=== PATIENT | female | born 1955 | race Caucasian/White ===

== ENCOUNTER 2021-08-17 16:09 | Outpatient (REF) | payer MEDICAID, SELFPAY ==
[2021-08-17 19:00] LABS: Abs Immature Grans 0.02 10^3/uL (0.0-0.06); Absolute Basophil Count 0.04 10^3/uL (0.0-0.2); Absolute Eosinophil Count 0.13 10^3/uL (0.0-0.7); Absolute Monocyte Count 0.58 10^3/uL (0.1-0.8); Absolute Neutrophil Count 5.43 10^3/uL (1.2-6.7); Basophils % 0.5; Eosinophils % 1.7; HCT 41.1 % (36.0-46.0); HGB 13.3 g/dL (11.2-15.7); Immature Grans % 0.3; Lymphocytes % 20.5; MCH 29.2 pg (27.0-33.0); MCHC 32.4 % (32.0-36.0); MCV 90.1 fL (80-95); Monocytes % 7.4; Neutrophils % 69.6; Nucleated RBC 0 %; Platelet Count 298 10^3/uL (130-400); RBC 4.56 10^6/uL (3.93-5.22); RDW 12.5 % (11.7-14.6); RDW-SD 40.8 fL
[2021-08-17 19:13] LABS: ESR 18 mm/hr (0-30)
[2021-08-17 19:58] LABS: ALT 24 U/L (14-59); AST 11 U/L (15-37); Albumin 3.8 g/dL (3.4-5.0); Alkaline Phosphatase 154 U/L (46-116); Anion Gap 7.9 mmol/L (3-11); BUN 15 mg/dL (7-18); Bilirubin, Total 0.4 mg/dL (0.2-1.0); CO2 29.1 mmol/L (21.0-32.0); CREATININE 0.7 mg/dL (0.55-1.02); Calcium 10.1 mg/dL (8.5-10.1); Calculated LDL 114 mg/dL (<100); Chloride 108 mmol/L (98-107); Cholesterol 181 mg/dL (<200); Glucose 100 mg/dL (74-106); HDL Cholesterol 45 mg/dL (40-60); Potassium 4.5 mmol/L (3.5-5.1); Sodium 145 mmol/L (136-145); Total Protein 7.6 g/dL (6.4-8.2); Triglyceride 113 mg/dL (<150)
[2021-08-17 20:12] LABS: Hemoglobin A1C 5.5 % (<5.7)
[2021-08-17 20:22] LABS: C-Reactive Protein 0.33 mg/dL (0.0-0.3)
== END 2021-08-17 16:10 | disposition home or self-care (01) ==
LOC: NCHCN 16:09
PROVIDERS: Referring Provider Nurse Practitioner Family; Visit Provider Nurse Practitioner Family
DX: Z13.1 Encounter for screening for diabetes mellitus (principal); Z13.220 Encounter for screening for lipoid disorders; R32 Unspecified urinary incontinence; R60.0 Localized edema; R03.0 Elevated blood-pressure reading, without diagnosis of hypertension; M62.81 Muscle weakness (generalized)
CPT/HCPCS: 80053; 80061; 85652; 83036; 85025; 86140

== ENCOUNTER 2021-09-24 14:47 | Outpatient (REF) | payer MEDICARE, MEDICAID, SELFPAY | END 2021-09-24 14:48 | disposition home or self-care (01) | LOC: NCHCN 14:47 | PROVIDERS: Visit Provider Nurse Practitioner Family | DX: R30.0 Dysuria (principal) | CPT/HCPCS: 87077; 87086; 87186 ==

== ENCOUNTER 2022-02-22 18:24 | Inpatient (IN) | payer MEDICARE, MEDICAID, SELFPAY ==
[2022-02-22 18:30] VITALS: BP 166/72; PULSE 81; RESP 18; TEMP 36.6; O2SAT 98
[2022-02-22 18:44] VITALS: RESP 18
--- NOTE | 2022-02-22 18:51 | ED.GENADUL_ITS ---
Discharge Plan Disposition Patient Disposition: [facility] INPATIENT Condition: Stable Discharge Details Clinical Impression: Bilateral leg weakness Primary Care Provider: Unknown,Unknown ED Provider: Carson Cox Home Meds and New Rx's Prescriptions: No Action aspirin 81 mg Capsule,Delayed Release(Dr/Ec) 81 mg PO DAILY 0RF omeprazole 20 mg Capsule,Delayed Release(Dr/Ec) 20 mg PO DAILY 0RF amlodipine-atorvastatin 10-40 mg Tablet 1 tab PO DAILY 0RF Medical Decision Making 66-year-old female presents from home where she has been living with caregivers. She is wheelchair-bound with flaccid lower extremities. While transferring off the toilet this evening she states she was dropped during the transfer to the floor. She did not injure herself. She states her caregivers are no longer able to sit successfully transfer her due to progressive weakness on their behalf. She does states she had some recent burning with urination but has otherwise been well. IV access established, screening labs obtained. Patient has a white blood cell count of 11, hematocrit 40, platelets 340. Chemistries unremarkable. Urinalysis reassuring. Case discussed with Dr. Shaw. Patient to be admitted as swing bed admission. HPI General Mode of arrival: wheelchair . Date/Time Provider Initiated Documentation: 02/22/22 18:42 . Limitations to Documentation: no limitations . Information obtained by: patient . History of Present Illness 66 year old F presents to the emergency department with the chief complaint of Fall at home, no injury, unable to return to longterm, denies pain, described as similar to prior episodes, Quality is described as other (Weakness), Patient started experiencing this month(s) and it has been intermittent. improves with No relieving factors improve symptom(s), No exacerbating factors reported . Patient notes other (Flaccid lower extremity, uses wheelchair and transfers with 2 person assist). Patient did receive the following treatments prior to arrival, none Related Data Home Medications Medication Instructions Recorded Confirmed amlodipine 10 mg-atorvastatin 40 1 tab PO DAILY 02/22/22 02/22/22 mg tablet aspirin 81 mg capsule,delayed 81 mg PO DAILY 02/22/22 02/22/22 release omeprazole 20 mg capsule,delayed 20 mg PO DAILY 02/22/22 02/22/22 release Allergies Allergy/AdvReac Type Severity Reaction Status Date / Time No Known Allergies Allergy Unverified 02/22/22 18:40 General Stated Complaint: GenMedical CHIO: 3 Review of Systems Narrative: Denies back pain. No numbness. No new weakness. States she has had some burning with urination and has an overactive bladder with frequent UTIs. 8 systems reviewed and otherwise negative PFSH All Active Problems (Updated 02/22/22 @ 20:54 by Alexis Shaw MD) Paraplegia (Acute) Bilateral leg weakness (Acute) Social History Smoking/Tobacco Use Status: Never Smoking risk assessment performed?: Yes Alcohol Intake: never Drug use: Never Exam Narrative Exam Narrative: GEN: awake, alert, oriented 3. Pleasant, well groomed, interactive. HEAD: Normocephalic, atraumatic ENT: Mucous membranes moist, oropharynx unremarkable, External ear exam unremarkable EYES: PERRL, EOMI NECK: Full ROM, no MADELINE, no menigismus CHEST/RESP: Nontender, clear to auscultation bilateral, no wheeze/rhonchi/rales CARDIOVASCULAR: RRR, no murmur, rub maryellen. 2+ Rad pulse bilateral ABDOMEN: Soft, nontender, no mass. +Bowel sounds EXT: Sensation intact throughout lower extremity, motor is absent, trace edema, no rash Neuro: Grossly normal neurologic exam, conversant, interactive. Psych: Speech fluent, thoughts congruent, affect normal Course Vital Signs Vital signs: Vital Signs Temperature 36.6 C 02/22/22 18:30 Pulse 81 02/22/22 18:30 Respiratory Rate 18 02/22/22 18:30 Blood Pressure 166/72 H 02/22/22 18:30 Pulse Oximetry 98 02/22/22 18:30 Temperature 36.6 C 02/22/22 18:30 Temperature Source Oral 02/22/22 18:30 Pulse 81 02/22/22 18:30 Respiratory Rate 18 02/22/22 18:44 Respiratory Effort Non-Labored 02/22/22 18:44 Respiratory Depth Normal 02/22/22 18:44 Respiratory Pattern Normal 02/22/22 18:44 Blood Pressure 166/72 H 02/22/22 18:30 Blood Pressure Position Supine 02/22/22 18:30 Pulse Oximetry 98 02/22/22 18:30 Oxygen Delivery Method Room Air 02/22/22 18:30 Oxygen Flow Rate 0 02/22/22 18:30 Pain Level 0 02/22/22 18:30
[2022-02-22 19:32] LABS: Abs Immature Grans 0.03 10^3/uL (0.0-0.06); Absolute Basophil Count 0.05 10^3/uL (0.0-0.2); Absolute Eosinophil Count 0.17 10^3/uL (0.0-0.7); Absolute Lymphocyte Count 1.92 10^3/uL (1.2-3.4); Basophils % 0.4; Eosinophils % 1.5; HCT 40.7 % (36.0-46.0); HGB 12.9 g/dL (11.2-15.7); Immature Grans % 0.3; Lymphocytes % 16.5; MCH 27.9 pg (27.0-33.0); MCHC 31.7 % (32.0-36.0); MCV 87.9 fL (80-95); MPV 10.4 fL (8.0-11.0); Monocytes % 4.7; Neutrophils % 76.6; Nucleated RBC 0 %; Platelet Count 340 10^3/uL (130-400); RBC 4.63 10^6/uL (3.93-5.22); RDW-SD 41.3 fL; WBC 11.61 10^3/uL (4.4-10.8)
[2022-02-22 19:34] LABS: Absolute Monocyte Count 0.55 10^3/uL (0.1-0.8); Absolute Neutrophil Count 8.89 10^3/uL (1.2-6.7)
[2022-02-22 19:35] LABS: Bilirubin Negative (Negative); Blood Trace-intact (Negative); Clarity Clear (Clear); Glucose Negative (Negative); Ketones Negative (Negative); Leukocyte Esterase Negative (Negative); Nitrite Negative (Negative); Specific Gravity 1.025 (1.005-1.025); Urobilinogen 0.2 EU/dL (Up TO 0.2)
[2022-02-22 19:40] LABS: ALT 22 U/L (14-59); AST 10 U/L (15-37); Alkaline Phosphatase 136 U/L (46-116); Anion Gap 8.5 mmol/L (3-11); BUN 15 mg/dL (7-18); Bilirubin, Total 0.4 mg/dL (0.2-1.0); CO2 26.5 mmol/L (21.0-32.0); CREATININE 0.6 mg/dL (0.55-1.02); Calcium 9.9 mg/dL (8.5-10.1); Chloride 107 mmol/L (98-107); Glucose 109 mg/dL (74-106); Magnesium 1.8 mg/dL (1.8-2.4); Potassium 3.8 mmol/L (3.5-5.1); Sodium 142 mmol/L (136-145); Total Protein 8.4 g/dL (6.4-8.2)
[2022-02-22 19:41] LABS: Bacteria Few HPF (Negative); C & S Indicated? No; Casts Negative LPF (Negative); Crystals Negative HPF (Negative); Epithelial Cells Few HPF (Negative); Mucus Negative (Negative); RBC 0-2 HPF (0-2)
--- NOTE | 2022-02-22 20:47 | W.PM.HP.N ---
Date of service: 02/22/22 Time of Service: 20:48 Assessment and Plan Assessment and plan (1) Paraplegia: Status: Acute Assessment and plan: Paraplegia. Unclear etiology, though I do not think the findings would be consistent with stroke. In any case she is obviously unable to manage at home with current lack of help desk support specialist. Will admit directly to swing bed 2 status and will need to work out placement. History of Present Illness History of Present Illness Chief Complaint: inability to manage at home Narrative: 66 female with h/o paraplegia of unknown etiology (she states it was due to stroke approx 2 years ago), has caregives at home and is two person assist. Caregivers have themselves been experiencing some issues recently and have reached a point where they are no longer able to manage transfers and in fact are in process of relocating out of the area from what I understand. P{atient transferred to ER due to inability to manage. Has no complaints here and says she is in her usual state of health. I was asked to evaluate for admission. Review of Systems Narrative: per HPI PFSH All Active Problems (Updated 02/22/22 @ 20:54 by Alexis Shaw MD) Paraplegia (Acute) Bilateral leg weakness (Acute) Social History Smoking/Tobacco Use Status: Never Smoking risk assessment performed?: Yes Alcohol Intake: never Drug use: Never Meds Allergies and Home Medications Allergies Allergy/AdvReac Type Severity Reaction Status Date / Time No Known Allergies Allergy Unverified 02/22/22 18:40 Home Medications Medication Instructions Recorded Confirmed Type amlodipine 10 mg-atorvastatin 40 1 tab PO DAILY 02/22/22 02/22/22 History mg tablet aspirin 81 mg capsule,delayed 81 mg PO DAILY 02/22/22 02/22/22 History release omeprazole 20 mg capsule,delayed 20 mg PO DAILY 02/22/22 02/22/22 History release Exam Narrative Exam Narrative: 166/72, 81, 36.6, 18, 98% RA. HEENT atraumatic; neck supple; lungs clear; heart RRR; abdomen soft and NT; extremities 1+ pedal edema; neuro Ox3, UE Motor 5/5; LE Motor 0/5, toes upgoing Results Labs Result diagrams: 02/22/22 19:10 02/22/22 19:10 Labs: Laboratory Results - last 24 hr 02/22/22 02/22/22 02/22/22 19:09 19:10 19:10 WBC 11.61 H RBC 4.63 Hgb 12.9 Hct 40.7 MCV 87.9 MCH 27.9 MCHC 31.7 L RDW 13.0 Plt Count 340 MPV 10.4 Immature Gran % 0.3 Neutrophils % 76.6 Lymphocytes % 16.5 Monocytes % 4.7 Eosinophils % 1.5 Basophils % 0.4 Nucleated RBC % 0 Absolute Neutrophils 8.89 H Absolute Lymphocytes 1.92 Absolute Monocytes 0.55 Absolute Eosinophils 0.17 Absolute Basophils 0.05 Sodium 142 Potassium 3.8 Chloride 107 Carbon Dioxide 26.5 Anion Gap 8.5 BUN 15 Creatinine 0.6 Estimated GFR/1.73 m2 >= 60.00 Glucose 109 H Calcium 9.9 Magnesium 1.8 Total Bilirubin 0.4 AST 10 L ALT 22 Alkaline Phosphatase 136 H Total Protein 8.4 H Albumin 4.0 Urine Color Yellow Urine Clarity Clear Urine pH 6.0 Ur Specific [place] 1.025 Urine Protein Negative Urine Ketones Negative Urine Blood Trace-intact H Urine Nitrite Negative Urine Bilirubin Negative Urine Urobilinogen 0.2 Ur Leukocyte Esterase Negative Urine RBC 0-2 Urine WBC 3-5 Ur Epithelial Cells Few Urine Crystals Negative Urine Bacteria Few Urine Casts Negative Urine Mucus Negative Ur Culture Indicated? No Urine Glucose Negative Last Vital Signs Temp 36.6 C 02/22/22 18:30 Pulse 81 02/22/22 18:30 Resp 18 02/22/22 18:44 BP 166/72 H 02/22/22 18:30 Pulse Ox 98 02/22/22 18:30
[2022-02-22 21:59] VITALS: BP 175/84; PULSE 83; RESP 20; TEMP 36.4; O2SAT 97
[2022-02-22 22:36] LABS: Source Nasal/Nares
[2022-02-23 07:14] VITALS: BP 133/77; PULSE 78; RESP 16; TEMP 37.1; O2SAT 98
[2022-02-23] MEDS: amLODIPine 10 MG TAB PO (08:03)
[2022-02-23] MEDS: Normal Saline Flush 10 ML SYR IVP (08:03)
[2022-02-23] MEDS: Aspirin E.C. 81 MG TABEC PO (08:04)
[2022-02-23] MEDS: Atorvastatin 40 MG TAB PO (08:04)
[2022-02-23] MEDS: Omeprazole 20 MG CAPCR PO (08:04)
[2022-02-23 09:42] LABS: COVID-19 PCR Negative (Negative)
[2022-02-23] MEDS: Nystatin POWDER 60 GM JAR TP ×2 (10:07→17:55)
--- NOTE | 2022-02-23 11:09 | INITIAL_ITS ---
- If Service Date Differs Date of service: 02/23/22 Time of Service: 11:09 Care Management Initial Assess REASON FOR HOSPITALIZATION:: BLE weakness PAST MEDICAL HISTORY/PAST SURGICAL HISTORY:: Bilateral lower extrremity weakness PREVIOUS FUNCTIONAL STATUS/SOCIAL/FAMILY SUPPORTS:: Alina lives with her daughter, her daughter's mani and his mother and their 3 children in [place], [place] She has developed increasing weakness of her lower extremities and requires the use of a wheelchair. Her family is no longer able to care for her and brought her to the hospital. She apparently was receiving home health services which ended in October. CURRENT FUNCTIONAL STATUS:: Alina was sitting up in bed when CM met with her. She was very pleasant and willing to engage in conversation. Alina explained that she has been receiving care at home from her daughter's mani's mother but she can no longer care for her. Alina is essentially wheelchair bound although she stated that when she left rehab last April she was able to ambulate. When asked what happened Alina stated I guess I kind of fell off the wagon. Its my own fault. She stated that she stopped PT and gradually regressed to her former level of functioning. At this time she verbalized not wanting to live in a facility but has no one able to care for her and she cannot manage on her own. CM spoke with her daughter Sue and discussed Retirement Medicaid with her and the likelihood this would be necessary. Sue agreed to come to the hospital to pick up truck driver the forms but has not done so yet. ADVANCE DIRECTIVES:: none on file Has patient been provided with info about the portal/API?: Yes Did the patient sign up for the portal?: No CODE STATUS:: Full Code INSURANCE COVERAGE / FINANCIAL ISSUES:: Medicare. Medicaid CURRENT HOME/COMMUNITY SERVICES/EQUIPMENT:: wheelchair PRIMARY CARE PHYSICIAN:: Yarelis Dimas POTENTIAL DISCHARGE NEEDS:: Alina was admitted as a SB-2 patient. custodial placement will likely be needed but with no payer source beyond traditional Medicaid, placement may be problematic.l PATIENT/FAMILY EDUCATION NEEDS:: Review of discharge instructions, limitations, follow up plan, activity, medications, Ask Me Three TRANSPORTATION:: to be determined by disposition PLAN:: Alina's discharge plan is unclear at this time. She will likley require terminal block assembler placement, however lacks a [facility] payer source. She does have Medicare and Medicaid but no [facility] Medicaid. BRENNAN discussed the need for LTM with Sue who will obtain the formss from BRENNAN when she comes to the hospital. CM will continue to support patient and assess for additional discharge concerns.
--- NOTE | 2022-02-23 12:58 | WOUNDCONS ---
- If Service Date Differs Date of service: 02/23/22 Time of Service: 12:58 Wound Initial Evaluation Narrative: 66 year old female with past history of CVA and bilateral leg weakness. Reported paralysis. Also history of incontinence, hypertension, hyperlipidemia, and bilateral leg edema. Lives at home with daughter and her [id number] who have been taking care of her. Unfortunately, they will be moving in March and will not be able to care for her any longer and have dropped pt off to the ER for placement in a [facility] inspector care facility. At home pt is a 2 person transfer to her recliner in which she spends most of the day. No history was given at the time patient was taken to the ER. Review of labs shows a slight elevation of WBC of 11.61, H&H of 12.9, 40.7 for good oxygenation, and an albumin of 4.0 for good healing potential. Review of medications include atorvastatin. Reason for consult explained to patient and consent obtained. Began with patient's feet that were dry and flaky with debris between her toes. Feet cleaned with moistened Debrisoft sponge. Most of the flakes removed. No open areas noted, no cracks between the toes found. Pt was repositioned onto left side. Area over the sacrum cleaned with surfactant cleanser. Pt has a 0.7x0.2x0.4 open over the sacrum. Periwound skin has no redness, no swelling and blanches well. Scant serous drainage from the wound. Coloplast Triad applied to site covered by duoderm. - Wound Lumbar/Sacral Wound Type: Partial Thickness Wound General Appearance: Asymptomatic Wound Bed Greatest Portion: Other (unable to visualize) Wound Surrounding Tissue Appearance: Normal/Healthy Wound Length: 0.7 in Wound Width: 0.2 in Wound Depth: 0.4 in Wound Drainage Amount: Minimal Wound Drainage Odor: None/Absent Wound Drainage Description: Serous Wound Topical Solution/Irrigant: Other (cleanser with surfactant) Wound Debridement Method: Gauze Wound Debridement Result: Healthy Tissue Revealed - Circulation, Sensation, Motion Edema Degree: 3+ Peripheral Pulse Strength: Weak Capillary Refill: Less than 3 seconds Sensation Description: Within Normal Limits Skin Temperature: Warm Skin Color: Normal - Pain Pain Level: 0 Pain Scale Used: Adult - Photo Photo: - Treatment/Dressing Change Topicals/Ointments: Other (Coloplast Triad) Cleanse With: Cleanser with Surfactant, Debrisoft Dressing Types: Hydrocollid (Duoderm) - Recomendation Recomendation:: Sacral wound: 1. Cleanse wound area with wound cleanser. 2. Pat dry. 3. Apply Coloplast Triad to wound bed and surrounding area to dime thickness. 4. Apply Skin prep to karoline wound skin. 5. Apply Duoderm over area. 6. Change every 3 days and prn if soiled or loose. Bilateral feet: 1. Wash feet daily. 2. Apply Eucerin cream to both feet daily. 3. If feet are dry and flaky, gently scrub feet with moisten Debrisoft sponge. Pat dry. And apply Eucerin Cream. Physcian/Nurse Practioner Notified: Yes Referrals: Physical Therapy Treatment Time - Time Total Time Spent with Patient: 60 - Patient Will be Seen Weekly Treatment: 1x/wk
[2022-02-23 14:55] VITALS: BP 144/83; PULSE 97; RESP 18; TEMP 36.5; O2SAT 99
--- NOTE | 2022-02-23 17:14 | CHAPLAIN ---
I had a short visit with Alina this afternoon. I explained my role and offered support. She was not interested in a further visit.
--- NOTE | 2022-02-23 17:47 | CM.SBPSYCH ---
- If Service Date Differs Date of service: 02/23/22 Time of Service: 17:47 SB Psychosocial/Act.Assessment - Hospital Admission Admission Date: 02/22/22 Admission From:: ED Diagnosis:: weakness - Swing Bed Admission Swing Bed Admit Date:: 02/22/22 Swing Bed Level of Care: Level 2/ICF - Social Supports PREVIOUS FUNCTIONAL STATUS/SOCIAL/FAMILY SUPPORTS:: Alina lives with her daughter, her daughter's fidimitrye and his mother and their 3 children in [place], [place]. She has developed increasing weakness of her lower extremities and requires the use of a wheelchair. Her family is no longer able to care for her and brought her to the hospital. She apparently was receiving home health services which ended in October. - Prior to Admission Living Arrangements/Environment Prior to Admission:: see above - Education Highest Grade Completed:: 12th Where did you attend School:: [employer] - Work History Employment Status:: retired - : No 's Spouse: No - Benefits Financial: Social Security, Medicare, Medicaid - Jehovah'S Witness Active Nondenominational Member:: No - Interests Hobbies:: crossword and word search puzzles Table Games:: enjoys playing games with grandchildren Sports:: enjoys watching all sports on TV Music:: all kinds including rock, country, easy listening TV/Movies:: westerns and game shows - Present Functional Status Physical Abilities:: wheelchair bound Cognitive:: little delayed, some memory issues Communication:: good verbal communication Sensory Systems: has reading glasses and top dentures Behavior:: appropriate - Medical History PAST MEDICAL HISTORY/PAST SURGICAL HISTORY:: Bilateral lower extrremity weakness General Health:: good - Admission Data Reason for Swing Bed Admission:: Unable to care for self at home. Caregivers unable to continue to provide care Discharge Plan:: SNF for rehab then home vs nursing home care Assessment: Alina is a 66 year old woman who has become progressively weaker over the past year. She was in a SNF for 4 months and was discharged on 05/27/21. Per patient, she did not continue her therapy as prescribed and gradually lost the ability to ambulate independently. She is in SB2 awaiting SNF placement and/or LTM. Doffer: Nicole Garcia Date Assessment was completed:: 02/23/22
--- NOTE | 2022-02-23 17:49 | CMSCP_ITS ---
- If Service Date Differs Date of service: 02/23/22 Time of Service: 17:49 Swingbed Plan of Care Plan of care: SWING BED PROGRAM ACTIVITIES/DISCHARGE PLAN OF CARE ACTIVITIES PLAN Date:02/23/22 Identified Need:Individualized activities plan Intervention/Plan:Alina enjoys crossword and wordsearch puzzles. She also likes to color in adult coloring books. She has been provided with all 3. Alina would benefit from pet or music therapy if they become available. She listens to music and watches TV as well. Initials [facility] DISCHARGE PLAN Date:02/23/22 Identified Need:safe discharge plan Intervention/Plan:seeking SNF placement for short or penitentiary care [facility]
[2022-02-23] MEDS: Cyclobenzaprine 10 MG TAB PO (22:37)
[2022-02-24 01:09] VITALS: BP 142/74; PULSE 77; RESP 17; TEMP 36.2; O2SAT 95
[2022-02-24 07:30] VITALS: BP 122/77; PULSE 84; RESP 19; TEMP 36.2; O2SAT 98
[2022-02-24] MEDS: amLODIPine 10 MG TAB PO (09:19)
[2022-02-24] MEDS: Aspirin E.C. 81 MG TABEC PO (09:20)
[2022-02-24] MEDS: Nystatin POWDER 60 GM JAR TP ×2 (09:20→19:47)
[2022-02-24] MEDS: Omeprazole 20 MG CAPCR PO (09:20)
[2022-02-24] MEDS: Atorvastatin 40 MG TAB PO (09:20)
[2022-02-24] MEDS: Normal Saline Flush 10 ML SYR IVP (09:21)
--- NOTE | 2022-02-24 09:44 | PT.INIE ---
Date of service: 02/24/22 Time of Service: 09:44 PT Notes Visit Reasons: Paraplegia Physical Therapy Inpatient Initial Evaluation Date: 02/24/2022 Referring Doctor: Jason Fox MD PT Orders: PT CONSULT: Eval/treat Precautions: Fall. Standard. Activity as tolerated. Wheelchair-bound. Patient Profile/Admitting Diagnosis: Alina is a 66-year-old female who presented to the ED on 01/25/2022 due to a fall at home during transfer with caregivers at home. Patient is diagnosed with paraplegia. PMHX: All Active Problems?(Updated 02/22/22 @ 20:54 by Alexis Shaw MD) Paraplegia (Acute) Bilateral leg weakness (Acute) Social History/Home Situation: Patient states that she stays with her daughter's boyfriend's mother' house. Patient states that the daughter's boyfriend and another male house member with a heart issue have been helping her with transfers. Equipment Owned/DME: Wheelchair Subjective: Agreeable to PT consult. Patient states that since her discharge from a SNF last spring, she has spiralled down and has been wheelchair-bound for almost a year now. She is adamant that she cannot return to this house anymore and is agreeable to going to a [place] [facility] facility to perhaps stay long-term. Objective: General Observation: Supine in bed. IV access in R UE. Mental Status: Alert and oriented as to person, place, time, and purpose. Able to pay attention, focus, and respond appropriately. Pain: Reports generalized pain with B UE and B LE movement/weight bearing ROM: Right Upper Extremity: Shoulder Flexion WFL. Shoulder abduction WFL. Elbow flexion WFL. Wrist flexion WFL. Functional opening and closing of hand WFL. Left Upper Extremity: Shoulder Flexion WFL. Shoulder abduction WFL. Elbow flexion WFL. Wrist flexion WFL. Functional opening and closing of hand WFL. Right Lower Extremity: Unable to move any part of extremity Left Lower Extremity: Unable to move any part of extremity Strength: Right Upper Extremity: Shoulder flexors 4/5. Shoulder abductors 4/5. Elbow flexors 4/5. Elbow extensors 4/5. Summer Sessions Director strong. Left Upper Extremity: Shoulder flexors 4/5. Shoulder abductors 4/5. Elbow flexors 4/5. Elbow extensors 4/5. Summer Sessions Director strong. Right Lower Extremity: Hip flexors 0/5. Hip abductors 0/5. Knee flexors 0/5. Knee extensors 0/5. Ankle dorsiflexors 0/5. Ankle plantarflexors 0/5. Left Lower Extremity: Hip flexors 0/5. Hip abductors 0/5. Knee flexors 0/5. Knee extensors 0/5. Ankle dorsiflexors 0/5. Ankle plantarflexors 0/5. Bed Mobility/Transfers: Rolling with moderate assist Supine to sit with moderate assist using bilateral rails, leg bottom cager, and gait belt tied to foot of the bed as something to grab onto Sit to stand tolerated about 5 seconds using STEDY lift with report of generalized body pain Stand to sit minimal assist of 3 using STEDY lift Bed to reclining chair minimal assist of 3 using STEDY lift, maximal cues provided correct technique Reclining chair to bed minimal assist of 3 using STEDY lift, maximal cues provided correct technique Gait: Unable Balance: Static Sitting: Fair Dynamic Sitting: Fair Static Standing: Unable Dynamic Standing: Unable Special Tests: Mobility Limitations Standardized Measure [facility] AM-PAC 6 clicks Basic Mobility Inpatient Short Form: Raw Score: 8 CMS Score: 87% deficit Informed Consent/Education: Patient was instructed in purpose of PT consult and plan of care. Agreeable to proceed with established PT POC to achieve personal goals. Assessment: Alina demonstrates inability to volitionally move bilateral lower extremities. She is very much deconditioned and reports upper extremity pain with attempts at standing up and with transfers. Initially used slide board from bed to the wheelchair but weakness in the trunk and UE muscles were not adequate needing assist of 3 for safety. Attempted to perform transfer with STEDY lift with assist of 3 but patient reported increased pain in back and upper extremities that only allowed up to 5 seconds of momentary static standing. Patient will be the safest using mechanical lift at this time to ensure safety of the patient and caregivers. Patient presents with clinical signs and symptoms consistent with current/admitting diagnoses that have resulted to mobility limitations, gait instability, generalized weakness, and overall ADL decline as demonstrated by the following impairment level findings: 1. Decreased strength to trunk and BUE/LE major muscle groups 2. Impaired sitting/standing balance 3. Impaired activity tolerance 4. HIgh anxiety and fearfulness of falling Impairments are contributing to the following functional limitations: 1. Decline in bed mobility skills 2. Decline in transfer skills 3. Increased risk for skin breakdown 4. Increased risk for further functional mobility decline Patient is assessed as a [address]0628 moderate complexity based on the following: History: 66-year-old femalewith past medical history as indicated above Examination: Demonstrable impairment in strength, balance, and mobility level with underlying impairments and functional limitations as exhibited above as well as deficit score of 87% utilizing the [facility] Mobility Inpatient Short Form Presentation: Unstable Decision Makin moderate complexity Goals: Goals X1 week 1. Supine-Sit contact-guard assist 2. Sit-Supine minimal assist to BLE 3. Bed-Chair contact-guard assist with slide board 4. Chair-Bed contact-guard assist with slide board 5. Good sitting balance and tolerance to increase safety of slide board transfers Plan of Care/Treatment Plan: 1-2x/day, 7 days/week x 1 week. Plan of care has been reviewed with the INVESTOR RELATIONS DIRECTOR providing the service under Physical Therapy direction. Initiate Physical Therapy intervention for pain management as needed, strengthening, bed mobility, and transfers. DISCHARGE RECOMMENDATIONS: [] Home with no services [] [] Home with services [specify] [] Home with outpatient PT [] [X] SNF for continued rehabilitation. Patient will benefit from [facility] for continued skilled physical therapy services in order to progress mobility level, strength, and balance to reduce fall risk. [] Snf Care [] [] SNF versus LTC based on ability to participate and progress [] TREATMENT CODE/TIME: 9716 2 x 20 minutes, 9753 0 x 12 minutes beginning at 9:44 AM and 10:38 AM. Thank you for the opportunity to participate in the care of this patient. Ana Trejo PT, DPT, CLT [facility] [place], [place]
--- NOTE | 2022-02-24 12:35 | PTTR_ITS ---
Date of service: 02/24/22 Time of Service: 12:35 PT Notes Visit Reasons: Paraplegia Physical Therapy Inpatient Treatment Note Date: 02/24/2022 Precautions: Fall. Standard. Activity as tolerated. Wheelchair-bound. Subjective: Agreeable to initiating trunk and B UE strengthening exercises while seated on chair. Daughter Sue present during session. Objective: General Observation: Supine in bed. IV access in R UE.? Mental Status: Alert and oriented as to person, place, time, and purpose. Able to pay attention, focus, and respond appropriately. Pain: Reports generalized pain with B UE and B LE movement/weight bearing THERA EX: Abdominal muscle activation while leaning forward from a reclined position and using B UE to pull from end of arm rests x 10, chair push ups with ability to straighten B elbows but without lifting pelvis off chair x 10, gluteal sets x 10. Patient needed to be scooted back onto chair for optimal positioning with assist from CRAFT SUPERINTENDENT Yue. Gait: Unable. However able to self mobilize in the hallway with wheelchair for 250 feet before report of fatigue. Balance: Static Sitting: Fair Dynamic Sitting: Fair Static Standing: Unable Dynamic Standing: Unable Assessment: Alina demonstrates inability to volitionally move bilateral lower extremities. She is very much deconditioned and reports upper extremity pain with attempts at standing up and with transfers.? Initially used slide board from bed to the wheelchair but weakness in the trunk and UE muscles were not adequate needing assist of 3? for safety.? Attempted to perform transfer with STEDY lift with assist of 3 but patient reported increased pain in back and upper extremities that only allowed up to 5 seconds of momentary static standing.? Patient will be the safest using mechanical lift at this time to ensure safety of the patient and caregivers.? DISCHARGE RECOMMENDATIONS: [] ? Home with no services [] [] ? Home with services [specify] [] ? Home with outpatient PT [] [X] ? SNF for continued rehabilitation.? Patient will benefit from long term facility placement for continued skilled physical therapy services in order to progress mobility level, strength, and balance to reduce fall risk. [] ? Nursing Home Care [] [] ? SNF versus LTC based on ability to participate and progress [] TREATMENT CODE/TIME: 15608 x 25 minutes beginning at 12:35 PM and 15:10 PM.
[2022-02-24 14:34] VITALS: BP 110/71; PULSE 83; RESP 20; TEMP 36.7; O2SAT 98
[2022-02-24] MEDS: Acetaminophen 325 MG TAB 650 MG PO (18:18)
[2022-02-24] MEDS: Baclofen 10 MG TAB PO (19:47)
[2022-02-25 00:01] VITALS: BP 119/72; PULSE 76; RESP 17; TEMP 36.3; O2SAT 93
[2022-02-25 07:32] VITALS: BP 131/77; PULSE 100; RESP 18; TEMP 37; O2SAT 96
[2022-02-25] MEDS: Aspirin E.C. 81 MG TABEC PO (09:39)
[2022-02-25] MEDS: amLODIPine 10 MG TAB PO (09:40)
[2022-02-25] MEDS: Atorvastatin 40 MG TAB PO (09:41)
[2022-02-25] MEDS: Baclofen 10 MG TAB PO ×3 (09:41→20:21)
[2022-02-25] MEDS: Omeprazole 20 MG CAPCR PO (09:42)
[2022-02-25] MEDS: Nystatin POWDER 60 GM JAR TP ×2 (09:42→20:21)
[2022-02-25] MEDS: Normal Saline Flush 10 ML SYR IVP (13:56)
[2022-02-25 14:18] VITALS: BP 116/71; PULSE 88; RESP 18; TEMP 37.2; O2SAT 96
--- NOTE | 2022-02-25 15:34 | PT.INTREAT ---
PT Notes Visit Reasons: Paraplegia Inpatient Physical Therapy Treatment Note [facility] Date: 02/25/22 SUBJECTIVE:Ailna offers no complaints to me today. She is willing to work with PT. OBJECTIVE: [] BED MOBILITY/TRANSFERS pt already in recliner. STEDI lift used with nsg. THEREX: performed UE and trunk strengthening ex. See flowsheet for details. Incorporated some light balance ex while seated for trunk control. ASSESSMENT: tolerated session well. Cues to slow mvmt patterns down and try to gain more control. PLAN:continue to work on abdominal and UE strength progressing functional mobility per PT POC. TREATMENT CODE/TIME: 15 min in am and 15 min in pm [id number]
[2022-02-25 23:16] VITALS: BP 129/80; PULSE 102; RESP 18; TEMP 37.4; O2SAT 95
[2022-02-26 07:32] VITALS: BP 130/81; PULSE 79; RESP 18; TEMP 37; O2SAT 100
[2022-02-26] MEDS: Baclofen 10 MG TAB PO ×3 (09:06→19:24)
[2022-02-26] MEDS: amLODIPine 10 MG TAB PO (09:07)
[2022-02-26] MEDS: Omeprazole 20 MG CAPCR PO (09:07)
[2022-02-26] MEDS: Aspirin E.C. 81 MG TABEC PO (09:08)
[2022-02-26] MEDS: Atorvastatin 40 MG TAB PO (09:08)
[2022-02-26] MEDS: Acetaminophen 325 MG TAB 650 MG PO (09:50)
--- NOTE | 2022-02-26 10:10 | PT.INTREAT ---
Date of service: 02/26/22 Time of Service: 10:10 PT Notes Visit Reasons: Paraplegia Physical Therapy Inpatient Treatment Note Date: 02/26/2022 Precautions: Fall. Standard. Activity as tolerated. Wheelchair-bound. Subjective: Agreeable to continuing with exercises today. Objective: General Observation: Supine in bed. IV access in R UE.? Mental Status: Alert and oriented as to person, place, time, and purpose. Able to pay attention, focus, and respond appropriately. Pain: Reports generalized pain with B UE and B LE movement/weight bearing THERA EX:? Shoulder abd x 10 using 3lb DB while on STEDY lift to facilitate concomittant trunk muscle . Elbow flexion and extension using 3 lb DB while on STEDY lift to facilitate concomittant trunk muscle. Abdominal muscle activation while on STEDY lift to leaning forward from a reclined trunk position with B UE hlding onto front bar x 10. THERA ACT: Facilitated sit<>stand/squat<>stand activities while on STEDY lift x 5 with patient able to sustain static standing for 5 seconds each time. Also provided positioning assist in bed with nursing staff during morning care. Transferred patient from edge of bed onto chair using STEDY lift. Bed Mobility/Transfers: Rolling with moderate assist Supine to sit with moderate assist using bilateral rails, leg systematic theology professor, and gait belt tied to foot of the bed as something to grab onto Sit to stand tolerated about 5 seconds using STEDY? lift with report of generalized body pain Stand to sit SBA using STEDY lift Bed to reclining chair minimal assist using STEDY lift, maximal cues provided correct technique Gait: Unable. However able to self mobilize in the hallway with wheelchair for 250 feet before report of fatigue. Balance: Static Sitting: Fair Dynamic Sitting: Fair Static Standing: Poor Dynamic Standing: Unable Assessment: Balance and tolerance for static standing are gradually improving with extensive cues provided for B UE and trunk positioning. Alina demonstrates inability to volitionally move bilateral lower extremities at this time. DISCHARGE RECOMMENDATIONS: [] ? Home with no services [] [] ? Home with services [specify] [] ? Home with outpatient PT [] [X] ? SNF for continued rehabilitation.? Patient will benefit from retirement facility placement for continued skilled physical therapy services in order to progress mobility level, strength, and balance to reduce fall risk. [] ? Half-Way Care [] [] ? SNF versus LTC based on ability to participate and progress [] TREATMENT CODE/TIME: 99426 x 15 minutes, 58411 x 10 minutes beginning at 10:10 AM.
[2022-02-26] MEDS: Nystatin POWDER 60 GM JAR TP ×2 (11:25→19:24)
[2022-02-26] MEDS: Polyethylene Glycol 3350 17 GM PACKET PO (13:19)
[2022-02-26 15:17] VITALS: BP 165/76; PULSE 89; RESP 20; TEMP 36.8; O2SAT 99
--- NOTE | 2022-02-26 15:24 | PT.INTREAT ---
PT Notes Visit Reasons: Paraplegia Inpatient Physical Therapy Treatment Note [facility] Date: 02/26/22 SUBJECTIVE: Alina states that she is currently applying to go to a custodial. She offers no complaints to me today. OBJECTIVE: [] THEREX: global UE strengthening, as well as core stabilization for trunk control, see flowsheet for details. ASSESSMENT: tolerated session well. No complaints offered during ex. Unable to lift herself in chair. PLAN: continue to progress following PT POC TREATMENT CODE/TIME: 18 min 10378x1
[2022-02-26] MEDS: Bisacodyl 10 MG SUPP PR (16:38)
[2022-02-26] MEDS: Docusate Sodium 100 MG CAP PO (19:24)
[2022-02-26 23:10] VITALS: BP 133/69; PULSE 117; RESP 20; TEMP 37.8; O2SAT 97
[2022-02-27] MEDS: Acetaminophen 325 MG TAB 650 MG PO (02:15)
[2022-02-27 07:57] VITALS: BP 154/84; PULSE 80; RESP 24; TEMP 37.1; O2SAT 95
[2022-02-27] MEDS: Baclofen 10 MG TAB PO ×3 (08:16→19:48)
[2022-02-27] MEDS: Aspirin E.C. 81 MG TABEC PO (08:16)
[2022-02-27] MEDS: amLODIPine 10 MG TAB PO (08:17)
[2022-02-27] MEDS: Omeprazole 20 MG CAPCR PO (08:17)
[2022-02-27] MEDS: Atorvastatin 40 MG TAB PO (08:17)
[2022-02-27] MEDS: Nystatin POWDER 60 GM JAR TP ×2 (08:17→19:48)
[2022-02-27] MEDS: Docusate Sodium 100 MG CAP PO ×2 (08:17→19:48)
--- NOTE | 2022-02-27 11:35 | PT.INTREAT ---
PT Notes Visit Reasons: Paraplegia Inpatient Physical Therapy Treatment Note [facility] OBJECTIVE: Bed-Chair: Via steady lift x 3 assist to stand. We will try the Maureen lift with pt next session to see if that is easier with transfers. GAIT THEREX: Pt completed UE strendthening ther ex while seated as per flow sheet with the red tband and the 3# wts. Pt completed core strengthening ther ex as per flow sheet while seated. ASSESSMENT: PT tolerated today's session fairly well. Pt did require vc's to slow down with her movement. Pt is not able to assist much with sit to stands with the steady. PLAN: Cont as per PT POC as per jennifer. TREATMENT CODE/TIME: 09-06:35 (35) GEOVANI SANCHEZ
[2022-02-27 15:54] VITALS: BP 133/85; PULSE 107; RESP 18; TEMP 36.7; O2SAT 97
[2022-02-27] MEDS: Senna TAB 1 TAB PO (21:26)
[2022-02-27 23:41] VITALS: BP 140/73; PULSE 104; RESP 20; TEMP 36.2; O2SAT 96
[2022-02-28 08:10] VITALS: BP 148/76; PULSE 106; RESP 16; TEMP 37.2; O2SAT 97
[2022-02-28] MEDS: Aspirin E.C. 81 MG TABEC PO (08:56)
[2022-02-28] MEDS: Baclofen 10 MG TAB PO ×3 (08:56→19:19)
[2022-02-28] MEDS: Omeprazole 20 MG CAPCR PO (08:56)
[2022-02-28] MEDS: amLODIPine 10 MG TAB PO (08:57)
[2022-02-28] MEDS: Docusate Sodium 100 MG CAP PO ×2 (08:57→19:18)
[2022-02-28] MEDS: Atorvastatin 40 MG TAB PO (08:57)
[2022-02-28] MEDS: Nystatin POWDER 60 GM JAR TP ×2 (08:58→19:19)
--- NOTE | 2022-02-28 11:42 | PT.INTREAT ---
PT Notes Visit Reasons: Paraplegia Inpatient Physical Therapy Treatment Note [facility] Date: 02/28/22 PRECAUTIONS:[] SUBJECTIVE: Pt reports that she is fatigued today. OBJECTIVE: Supine-sit: Mod x 2 Sit-stand: Steady lift x 3 Stand-sit: Steady lift x 2 THEREX: Pt completed UE strengthening ther ex as per flow sheet utilizing the red tband and the 3# wts as per flow sheet. Pt also completed seated mini crunches for core. ASSESSMENT: Pt was able to transfer better today and required less assist then yesterday but seemed more tired with the exercises today. PLAN: Cont as per PT POC as per jennifer. TREATMENT CODE/TIME: 10:15-10:20 (5) 10:30-10:50 (20) GEOVANI SANCHEZ
[2022-02-28 16:09] VITALS: BP 151/83; PULSE 95; RESP 17; TEMP 37; O2SAT 98
--- NOTE | 2022-02-28 18:16 | W.PM.PROGNOT ---
Date of Service Date of service: 02/28/22 Time of Service: 18:16 Assessment and Plan Assessment and plan (1) Paraplegia: Start date: 02/28/22 Start time: 18:18 Status: Acute Assessment and plan: Patient is able to transfer with PT and ambulate. She is not parapelgic. Believed to be self diagnosis. Continue to work with PT. (2) Bilateral leg weakness: Start date: 02/28/22 Start time: 18:19 Status: Acute Assessment and plan: Patient was ambulatory, went home and gave up, now working with PT to gain strength. continue to work increasing strength discussed with Dr. De La Rosa. Subjective Subjective Patient reports: no new complaints Interval history since last seen: Sitting up in bed eating. States no complaints. When asked to move feet or legs states she cant, though she was able to transfer with PT. No pain continue to work with PT. Exam Const General: cooperative, comfortable and no acute distress Nutritional Appearance: obese Orientation: alert, awake and oriented x3 Eyes Eyelids: eyelids normal Pupils: PERRL EOM: EOM intact bilaterally Neck Neck: normal visual inspection and no JVD Lymphatic: no lymphadenopathy noted Resp Effort & Inspection: normal respiratory effort Auscultation: clear to auscultation bilaterally Cardio Jugular venous pressure: no JVD Rhythm: regular rhythm Heart Sounds: S1 normal GI Auscultation: normal bowel sounds Skin General skin exam: no rashes or lesions noted Neuro General: patient alert, patient awake and patient oriented x3 Cognition: normal cognition Speech: speech normal Extrem General: normal to inspection and no clubbing, cyanosis or edema Objective Last Vital Signs Temp 37 C 02/28/22 16:09 Pulse 95 H 02/28/22 16:09 Resp 17 02/28/22 16:09 BP 151/83 H 02/28/22 16:09 Pulse Ox 98 02/28/22 16:09
[2022-02-28] MEDS: Senna TAB 1 TAB PO (21:24)
[2022-02-28 22:54] VITALS: BP 119/74; PULSE 88; RESP 19; TEMP 36.7; O2SAT 94
[2022-03-01] MEDS: Acetaminophen 325 MG TAB 650 MG PO (00:05)
[2022-03-01] MEDS: Melatonin 3 MG TAB 6 MG PO (00:06)
--- NOTE | 2022-03-01 01:15 | NUR.NOTE ---
this display card writer assisted with placing a female catheter on patient. suction placed at 45-50mmg as per weaving machine operator instructions. patient tolerated procedure well and was agreeable to the trial.
[2022-03-01 05:06] VITALS: BP 125/73; PULSE 84; RESP 19; TEMP 36.2; O2SAT 95
[2022-03-01 07:35] VITALS: BP 126/68; PULSE 70; RESP 18; TEMP 36.4; O2SAT 97
[2022-03-01] MEDS: Atorvastatin 40 MG TAB PO (08:13)
[2022-03-01] MEDS: Aspirin E.C. 81 MG TABEC PO (08:13)
[2022-03-01] MEDS: Nystatin POWDER 60 GM JAR TP ×2 (08:13→21:27)
[2022-03-01] MEDS: Baclofen 10 MG TAB PO ×3 (08:13→21:27)
[2022-03-01] MEDS: amLODIPine 10 MG TAB PO (08:13)
[2022-03-01] MEDS: Omeprazole 20 MG CAPCR PO (08:13)
[2022-03-01] MEDS: Docusate Sodium 100 MG CAP PO ×2 (08:13→21:27)
--- NOTE | 2022-03-01 10:57 | PTTR_ITS ---
Date of service: 03/01/22 Time of Service: 10:57 PT Notes Visit Reasons: Paraplegia Physical Therapy Inpatient Treatment Note Date: 03/01/2022 Precautions: Fall. Standard. Activity as tolerated. Wheelchair-bound. Subjective: Agreeable to continuing with exercises today. Objective: General Observation: Seated on chair. Mental Status: Alert and oriented as to person, place, time, and purpose. Able to pay attention, focus, and respond appropriately. Pain: Denies THERA EX:? Shoulder abd x 10 using 3lb DB, shoulder and elbow flexion and extension using 3 lb DB, Abdominal muscle activation with B UE pulling from end of arm rests and with trunk coming from a reclined position on bedside recliner x 10.? Gait: Unable. Balance: Static Sitting: Fair Dynamic Sitting: Fair Static Standing: Poor Dynamic Standing: Unable Assessment: Decrease to 1x/day beginning today. Balance and tolerance for static standing are gradually improving with extensive cues provided for B UE and trunk positioning.? Alina demonstrates inability to volitionally move bilateral lower extremities at this time. DISCHARGE RECOMMENDATIONS: [] ? Home with no services [] [] ? Home with services [specify] [] ? Home with outpatient PT [] [X] ? SNF for continued rehabilitation.? Patient will benefit from [facility] for continued skilled physical therapy services in order to progress mobility level, strength, and balance to reduce fall risk. [] ? [facility] [] [] ? SNF versus LTC based on ability to participate and progress [] TREATMENT CODE/TIME: 66338 x 18 beginning at 10:57 AM.
[2022-03-01 15:30] VITALS: BP 121/74; PULSE 91; RESP 19; TEMP 36.7; O2SAT 98
--- NOTE | 2022-03-01 18:06 | NUR.NOTE ---
Nursing Note: This MANUFACTURING PRODUCTION TECHNICIAN went into the room to assist ESPERANZA Benoit to get pt back to bed from chair around 1750. Kaycee had a steady lift in place. We then attempted to help patient stand and patient only moved forward and was not able to assist herself to stand at all. We immediately called for more assistance but by the time CRUZ Blake entered the room she was already to far forward in the chair. At that point it was determined the safest option would be to continue assisting patient to the floor and use the john lift at that point. Patient was assisted off the edge of the chair to the floor. This was able to be accomplished very elegantly and gingerly as she was in a controlled slide to the floor with the bed pad. John pad then placed and pt was moved back to bed with out further complications. No injuries were sustained in this event. TISH Erazo notified.
[2022-03-01 21:23] VITALS: BP 120/73; PULSE 111; RESP 18; TEMP 36.7; O2SAT 96
[2022-03-01] MEDS: Senna TAB 1 TAB PO (21:27)
[2022-03-01 23:34] VITALS: BP 125/65; PULSE 70; RESP 18; TEMP 36.6; O2SAT 97
[2022-03-02 06:46] VITALS: BP 126/76; PULSE 80; RESP 18; TEMP 36.6; O2SAT 96
[2022-03-02] MEDS: amLODIPine 10 MG TAB PO (08:11)
[2022-03-02] MEDS: Baclofen 10 MG TAB PO ×3 (08:11→20:59)
[2022-03-02] MEDS: Docusate Sodium 100 MG CAP PO ×2 (08:11→20:59)
[2022-03-02] MEDS: Nystatin POWDER 60 GM JAR TP ×2 (08:11→20:59)
[2022-03-02] MEDS: Omeprazole 20 MG CAPCR PO (08:11)
[2022-03-02] MEDS: Aspirin E.C. 81 MG TABEC PO (08:11)
[2022-03-02] MEDS: Atorvastatin 40 MG TAB PO (08:11)
[2022-03-02 15:00] VITALS: BP 128/77; PULSE 83; RESP 18; TEMP 36.7; O2SAT 99
--- NOTE | 2022-03-02 15:43 | PT.INTREAT ---
Date of service: 03/02/22 Time of Service: 08:38 PT Notes Visit Reasons: Paraplegia Inpatient Physical Therapy Treatment Note [facility] Date: 03/02/2022 PRECAUTIONS: Activity as tolerated, paraplegia, non-ambulatory SUBJECTIVE: Alina is pleasant and agreeable to participating in PT. She states that she requires help with bed mobility and transfers. She is hoping to be placed in a SNF soon. OBJECTIVE: PAIN: No c/o pain BED MOBILITY/TRANSFERS Supine-sit: Mod A with HOB at 50 degrees with use of leg foot roentgenologist and max verbal and tactile cueing Sit-stand: CGA x2 Stand-sit: CGA x2 Bed-Chair: STEDY with SBA x2 THEREX: Patient was instructed in a resisted UE strengthening program, completed in a seated position, as per flow sheet. She utilizes red Theraband and 3# dumbbells with all exercises. She demonstrates global weakness and minimal core/trunk control. ASSESSMENT: Patient tolerated session with complaint of frustration with inability to complete bed mobility without Mod assist and maximum cueing. She demonstrates global weakness and would benefit from continued global strengthening. PLAN: Continue with bed mobility and transfer training as well as global strengthening for improved mobility and activity tolerance. TREATMENT CODE/TIME: 31 minutes; 20261, 13200 (08:38)
--- NOTE | 2022-03-02 17:36 | W.PM.PROGNOT ---
Date of Service Date of service: 03/02/22 Time of Service: 11:00 Assessment and Plan Assessment and plan (1) Paraplegia: Status: Acute Assessment and plan: Patient is able to transfer with PT and ambulate. She is not parapelgic. Believed to be self diagnosis. Continue to work with PT. (2) Bilateral leg weakness: Status: Acute Assessment and plan: Patient was ambulatory, went home and gave up, now working with PT to gain strength. continue to work increasing strength discussed with Dr. De La Rosa. Subjective Subjective Patient reports: no new complaints Interval history since last seen: Sitting up in bed eating. States no complaints. When asked to move feet or legs states she cant, though she was able to transfer with PT. No pain continue to work with PT. Exam Narrative Exam Narrative: 166/72, 81, 36.6, 18, 98% RA. HEENT atraumatic; neck supple; lungs clear; heart RRR; abdomen soft and NT; extremities 1+ pedal edema; neuro Ox3, UE Motor 5/5; LE Motor 0/5, toes upgoing Const General: cooperative, comfortable and no acute distress Nutritional Appearance: obese Orientation: alert, awake and oriented x3 Eyes Eyelids: eyelids normal Pupils: PERRL EOM: EOM intact bilaterally Neck Neck: normal visual inspection and no JVD Lymphatic: no lymphadenopathy noted Resp Effort & Inspection: normal respiratory effort Auscultation: clear to auscultation bilaterally Cardio Jugular venous pressure: no JVD Rhythm: regular rhythm Heart Sounds: S1 normal GI Auscultation: normal bowel sounds Skin General skin exam: no rashes or lesions noted Neuro General: patient alert, patient awake and patient oriented x3 Cognition: normal cognition Speech: speech normal Extrem General: normal to inspection and no clubbing, cyanosis or edema Objective Last Vital Signs Temp 98.1 F 03/02/22 15:00 Pulse 83 03/02/22 15:00 Resp 18 03/02/22 15:00 BP 128/77 03/02/22 15:00 Pulse Ox 99 03/02/22 15:00
[2022-03-02] MEDS: Acetaminophen 325 MG TAB 650 MG PO (18:13)
[2022-03-02 20:57] VITALS: BP 118/69; PULSE 86; RESP 18; TEMP 36.6; O2SAT 96
[2022-03-02] MEDS: Melatonin 3 MG TAB 6 MG PO (20:59)
[2022-03-02] MEDS: Senna TAB 1 TAB PO (20:59)
[2022-03-03 06:05] VITALS: BP 117/65; PULSE 76; RESP 18; TEMP 36.3; O2SAT 96
[2022-03-03] MEDS: amLODIPine 10 MG TAB PO (08:44)
[2022-03-03] MEDS: Aspirin E.C. 81 MG TABEC PO (08:44)
[2022-03-03] MEDS: Baclofen 10 MG TAB PO ×3 (08:45→19:22)
[2022-03-03] MEDS: Nystatin POWDER 60 GM JAR TP ×2 (08:45→19:22)
[2022-03-03] MEDS: Docusate Sodium 100 MG CAP PO ×2 (08:45→19:22)
[2022-03-03] MEDS: Omeprazole 20 MG CAPCR PO (08:45)
[2022-03-03] MEDS: Atorvastatin 40 MG TAB PO (08:45)
[2022-03-03 15:21] VITALS: BP 120/75; PULSE 102; RESP 18; TEMP 36.8; O2SAT 98
[2022-03-03] MEDS: Senna TAB 1 TAB PO (21:06)
[2022-03-03 23:53] VITALS: BP 121/72; PULSE 91; RESP 18; TEMP 37.1; O2SAT 95
[2022-03-04 07:50] VITALS: BP 124/77; PULSE 85; RESP 24; TEMP 36.6; O2SAT 97
[2022-03-04] MEDS: Nystatin POWDER 60 GM JAR TP ×2 (09:10→21:53)
[2022-03-04] MEDS: Atorvastatin 40 MG TAB PO (09:10)
[2022-03-04] MEDS: Omeprazole 20 MG CAPCR PO (09:11)
[2022-03-04] MEDS: amLODIPine 10 MG TAB PO (09:11)
[2022-03-04] MEDS: Aspirin E.C. 81 MG TABEC PO (09:11)
[2022-03-04] MEDS: Docusate Sodium 100 MG CAP PO ×2 (09:11→21:52)
[2022-03-04] MEDS: Baclofen 10 MG TAB PO ×3 (09:11→21:53)
--- NOTE | 2022-03-04 10:36 | CMPROGNOTE_ITS ---
- If Service Date Differs Date of service: 03/04/22 Time of Service: 10:36 Care Management Progress Note S/O: Alina is in [facility] working with PT awaiting placement in a correction facility. Referrals have been sent to [facility], but no determination has been made yet. She is pleasant and cooperative with working with PT. Alina verbalizes that she does not want to live in a intermediate for the rest of her life. She stated that she feels that is what her daughter wants. CM encouraged her to continue working with PT so that she can regain strength and function. She has full sensation in her lower extremities but they are very weak at this point. A: Alina is a 66 year old woman admitted on 02/22/22 with weakness. P: Alina is awaiting placement in a SNF. A [facility] med[facility] application was submitted earlier this week.Referrals were sent to [facility]. CM will continue to support Alina and her discharge needs.
--- NOTE | 2022-03-04 10:47 | PDOC.CMACT ---
- If Service Date Differs Date of service: 03/04/22 Time of Service: 10:47 Care Management Activity Note Alina enjoys watching TV and visiting with staff. She also enjoys coloring and word searches and has been provided with coloring materials and puzzle books by CM. Alina would enjoy pet and music therapy if they again become available.
--- NOTE | 2022-03-04 12:00 | INPN_ITS ---
Date of service: 03/04/22 PT Notes Visit Reasons: Paraplegia Physical Therapy Inpatient Progress Note Date: 03/04/2022 Dates of Service: 02/24/2022 through 03/04/2022 Referring Doctor: Jason Fox MD PT Orders: PT CONSULT: Eval/treat Precautions: Fall. Standard. Activity as tolerated. Wheelchair-bound. Patient Profile/Admitting Diagnosis: Alina is a 66-year-old female who presented to the ED on 01/25/2022 due to a fall at home during transfer with caregivers at home.? Patient is diagnosed with paraplegia. PMHX: All Active Problems?(Updated 02/22/22 @ 20:54 by Alexis Shaw MD) Paraplegia (Acute) Bilateral leg weakness (Acute) Social History/Home Situation: Patient states that she stays with her daughter's boyfriend's mother' house.? Patient states that the daughter's boyfriend and another male house member with a heart issue have been helping her with transfers.? Equipment Owned/DME: Wheelchair Subjective: Continues to be frustrated and helpless about not being able to move bilateral lower extremities. Anxious about standing up. Agreeable to today's reassessment and B UE/trunk strength progression. Objective: General Observation: Supine in bed. IV access in R UE.? Mental Status: Alert and oriented as to person, place, time, and purpose. Able to pay attention, focus, and respond appropriately. Pain: Denies ROM: Right Upper Extremity: ? Shoulder Flexion WFL. Shoulder abduction WFL. Elbow flexion WFL. Wrist flexion WFL. Functional opening and closing of hand WFL. Left Upper Extremity:? Shoulder Flexion WFL. Shoulder abduction WFL. Elbow flexion WFL. Wrist flexion WFL. Functional opening and closing of hand WFL. Right Lower Extremity: Unable to move any part of extremity Left Lower Extremity: Unable to move any part of extremity Strength: Right Upper Extremity: Shoulder flexors 4/5. Shoulder abductors 4/5. Elbow flexors 4/5. Elbow extensors 4/5. Operations Specialists strong. Left Upper Extremity: Shoulder flexors 4/5. Shoulder abductors 4/5. Elbow flexors 4/5. Elbow extensors 4/5. Operations Specialists strong. Right Lower Extremity: Hip flexors 0/5. Hip abductors 0/5. Knee flexors 0/5. Knee extensors 0/5. Ankle dorsiflexors 0/5. Ankle plantarflexors 0/5. Left Lower Extremity: Hip flexors 0/5. Hip abductors 0/5. Knee flexors 0/5. Knee extensors 0/5. Ankle dorsiflexors 0/5. Ankle plantarflexors 0/5. Bed Mobility/Transfers: Supine to sit modified independent with HOB at 30 degrees with patient pulling from bilateral leg rails Scoot to L side unable Scoot to R side unable Scoot back unable Scoot forward unable THERA EX: B UE strengthening consisting of shoulder horizontal abduction/adduction/scauplar protaction/retraction x 15, shoulder flexion and extension x 15, Elbow flexion/extension x 15 using 3 lb DB. Abdominal muscle activation from a reclined position in bed x 10 for 2 sets. Worked on partially elevating pelvis using B hands pushing down in bed x 10. Gait: Unable Balance: Static Sitting: Fair Dynamic Sitting: Poor Static Standing: Unable Dynamic Standing: Unable Special Tests: Mobility Limitations Standardized Measure [facility] AM-PAC 6 clicks Basic Mobility Inpatient Short Form: Raw Score: 8 CMS Score: 87% deficit? ? ? Informed Consent/Education:? Patient was instructed in purpose of PT consult and plan of care. Agreeable to conrtinue with established PT POC to achieve personal goals. Assessment: Alina continues to demonstrate inability to volitionally move bilateral lower extremities. May need to look at neurology notes from previous consult to better plan mobility goals. She has worked hard with PT towards B UE/trunk strengthening but continues to need mechanical lift for all transfers for nursing staff. Due to anxiety over falling and impaired cognition with limited ability to follow instructions, prognosis for achieving goals below is fair. Will continue to assess a better transfer device between STEDY lift versus slide board depending on trunk stability and strength. Patient presents with clinical signs and symptoms consistent with current/a dmitting diagnoses that have resulted to mobility limitations, gait instability, generalized weakness, and overall ADL decline as demonstrated by the following impairment level findings: 1.? Decreased strength to trunk and BUE/LE major muscle groups 2.? Impaired sitting/standing balance 3.? Impaired activity tolerance 4.? HIgh anxiety and fearfulness of falling Impairments are contributing to the following functional limitations: 1.? Decline in bed mobility skills 2.? Decline in transfer skills 3.? Increased risk for skin breakdown 4.? Increased risk for further functional mobility decline Patient is assessed as a 73120 high complexity based on the following: History: 66-year-old femalewith past medical history as indicated above Examination: Demonstrable impairment in strength, balance, and mobility level with underlying impairments and functional limitations as exhibited above as well as deficit score of 87% utilizing the [facility] Mobility Inpatient Short Form Presentation: Unstable Decision Makin high complexity Goals: Goals X1 week 1. Supine-Sit contact-guard assist NOT MET, CONTINUE 2. Sit-Supine minimal assist to BLE NOT MET, CONTINUE 3. Bed-Chair contact-guard assist with slide board NOT MET DOWNGRADE to minimal assist of 2 4. Chair-Bed contact-guard assist with slide board NOT MET DOWNGRADE to minimal assist of 2 5. Good sitting balance and tolerance to increase safety of slide board transfers NOT MET, CONTINUE Plan of Care/Treatment Plan: 1x/day, 7 days/week x 1 week. Plan of care has been reviewed with the DINKEY MECHANIC providing the service under Physical Therapy direction. Initiate Physical Therapy intervention for pain management as needed, strengthening, bed mobility, and transfers. DISCHARGE RECOMMENDATIONS: [] ? Home with no services [] [] ? Home with services [specify] [] ? Home with outpatient PT [] [X] ? SNF for continued rehabilitation.? Patient will benefit from longterm facility placement for continued skilled physical therapy services in order to progress mobility level, strength, and balance to reduce fall risk. [] ? Group Home Care [] [] ? SNF versus LTC based on ability to participate and progress [] TREATMENT CODE/TIME: 68061 x 25 minutes. Thank you for the opportunity to participate in the care of this patient. Ana Trejo PT, DPT, CLT [facility] [place], [place]
[2022-03-04 15:02] VITALS: BP 127/69; PULSE 56; RESP 20; TEMP 37; O2SAT 97
[2022-03-04] MEDS: Acetaminophen 325 MG TAB 650 MG PO (18:29)
[2022-03-04] MEDS: Senna TAB 1 TAB PO (21:52)
[2022-03-04] MEDS: Melatonin 3 MG TAB 6 MG PO (21:52)
[2022-03-05 01:07] VITALS: BP 137/67; PULSE 75; RESP 20; TEMP 36.8; O2SAT 95
[2022-03-05 07:53] VITALS: BP 125/79; PULSE 79; RESP 20; TEMP 36.5; O2SAT 96
[2022-03-05] MEDS: Nystatin POWDER 60 GM JAR TP ×2 (08:38→20:09)
[2022-03-05] MEDS: amLODIPine 10 MG TAB PO (08:39)
[2022-03-05] MEDS: Baclofen 10 MG TAB PO ×3 (08:39→19:56)
[2022-03-05] MEDS: Aspirin E.C. 81 MG TABEC PO (08:39)
[2022-03-05] MEDS: Atorvastatin 40 MG TAB PO (08:39)
[2022-03-05] MEDS: Docusate Sodium 100 MG CAP PO ×2 (08:39→19:56)
[2022-03-05] MEDS: Omeprazole 20 MG CAPCR PO (08:39)
--- NOTE | 2022-03-05 14:22 | PTTR_ITS ---
Date of service: 03/05/22 Time of Service: 08:36 PT Notes Visit Reasons: Paraplegia Inpatient Physical Therapy Treatment Note [facility] Date: 03/05/2022 PRECAUTIONS: Fall, Activity as tolerated SUBJECTIVE: Alina is pleasant and agreeable to participating in PT. She expresses frustration regarding her B LE weakness, specifically with bed mobility training, but is able to refocus her energy when cued. OBJECTIVE: PAIN: No c/o pain BED MOBILITY/TRANSFERS Supine-sit: Mod A with HOB at 40 degrees and leg senior information security consultant Sit-supine: Max A x2 Sit-stand: Mod A with STEDY Stand-sit: Mod A with STEDY Bed-Chair: STEDY with SBA Chair-bed: STEDY with SBA GAIT: Unable THEREX: Held ther ex due to unavailability ASSESSMENT: Patient tolerated session with increasing frustration regarding B LE weakness, although patient continues to participate fully in bed mobility and transfer training. PLAN: Continue with UE and core strengthening and bed mobility and transfer training for improved mobility. TREATMENT CODE/TIME: 18 minutes; [id number] (08:36)
[2022-03-05 15:14] VITALS: BP 120/73; PULSE 81; RESP 20; TEMP 36.5; O2SAT 97
[2022-03-05] MEDS: Senna TAB 1 TAB PO (19:56)
[2022-03-05] MEDS: Acetaminophen 325 MG TAB 650 MG PO (21:26)
[2022-03-05 23:15] VITALS: BP 137/78; PULSE 82; RESP 20; TEMP 37; O2SAT 95
[2022-03-06] MEDS: Acetaminophen 325 MG TAB 650 MG PO ×2 (03:06→20:02)
[2022-03-06 08:30] VITALS: BP 138/68; PULSE 91; RESP 17; TEMP 36.4; O2SAT 95
[2022-03-06] MEDS: amLODIPine 10 MG TAB PO (08:44)
[2022-03-06] MEDS: Atorvastatin 40 MG TAB PO (08:44)
[2022-03-06] MEDS: Omeprazole 20 MG CAPCR PO (08:44)
[2022-03-06] MEDS: Docusate Sodium 100 MG CAP PO ×2 (08:44→20:02)
[2022-03-06] MEDS: Aspirin E.C. 81 MG TABEC PO (08:45)
[2022-03-06] MEDS: Baclofen 10 MG TAB PO ×3 (08:45→20:02)
[2022-03-06] MEDS: Nystatin POWDER 60 GM JAR TP ×2 (08:47→20:02)
--- NOTE | 2022-03-06 15:22 | W.PM.PROGNOT ---
Date of Service Date of service: 03/06/22 Time of Service: : Assessment and Plan Assessment and plan (1) Paraplegia: Start date: 03/06/22 Start time: 30 Status: Acute Assessment and plan: Patient is a full assist lift from bed to chair and back. she does exercises in her bed. Can not wiggle toes. Muscles have atrophied from not using them. When doing resistance against feet there is little resistance pushing and pulling. (2) Bilateral leg weakness: Start date: 03/06/22 Start time: :30 Status: Acute Assessment and plan: Patient was ambulatory, went home and gave up, has not been able to regain strength back even with continuing to work increasingly on strength discussed with Dr. Amador Subjective Subjective Patient reports: no new complaints Interval history since last seen: Patient sitting up in bed no new complaints, unable to ambulate. She is unable to move toes, push or pull feet against gravity. She requires fulllift assist from bed to chair and chair to bed. Otherwise she does exercises in bed. No complaints. Exam Const General: cooperative, comfortable and no acute distress Nutritional Appearance: obese Orientation: alert, awake and oriented x3 Eyes Eyelids: eyelids normal Pupils: PERRL EOM: EOM intact bilaterally Neck Neck: normal visual inspection and no JVD Lymphatic: no lymphadenopathy noted Resp Effort & Inspection: normal respiratory effort Auscultation: clear to auscultation bilaterally Cardio Jugular venous pressure: no JVD Rate: regular rate Rhythm: regular rhythm Heart Sounds: S1 normal GI Auscultation: normal bowel sounds Skin General skin exam: no rashes or lesions noted Neuro General: patient alert, patient awake and patient oriented x3 Cognition: normal cognition Speech: speech normal DTR's: Rt Ankle: 1+ and Lt Ankle: 1+ Extrem General: no clubbing, cyanosis or edema and muscle atrophy (unable to move feet or wiggle toes, push against my hands) of the right lower extremity and of the left lower extremity Objective Last Vital Signs Temp 36.4 C L 03/06/22 08:30 Pulse 91 H 03/06/22 08:30 Resp 17 03/06/22 08:30 BP 138/68 03/06/22 08:30 Pulse Ox 95 03/06/22 08:30
[2022-03-06 16:00] VITALS: BP 140/82; PULSE 85; RESP 19; TEMP 36.7; O2SAT 98
[2022-03-06] MEDS: Senna TAB 1 TAB PO (20:02)
[2022-03-06 23:32] VITALS: BP 121/59; PULSE 78; RESP 19; TEMP 36.8; O2SAT 95
[2022-03-07 08:15] VITALS: BP 130/65; PULSE 88; RESP 21; TEMP 36.4; O2SAT 96
[2022-03-07] MEDS: Nystatin POWDER 60 GM JAR TP ×2 (08:28→21:07)
[2022-03-07] MEDS: Aspirin E.C. 81 MG TABEC PO (08:28)
[2022-03-07] MEDS: Atorvastatin 40 MG TAB PO (08:28)
[2022-03-07] MEDS: amLODIPine 10 MG TAB PO (08:28)
[2022-03-07] MEDS: Docusate Sodium 100 MG CAP PO ×2 (08:29→21:07)
[2022-03-07] MEDS: Baclofen 10 MG TAB PO ×3 (08:29→21:07)
[2022-03-07] MEDS: Omeprazole 20 MG CAPCR PO (08:29)
--- NOTE | 2022-03-07 12:57 | PT.INTREAT ---
PT Notes Visit Reasons: Paraplegia Inpatient Physical Therapy Treatment Note [facility] Date: 03/07/22 SUBJECTIVE: Alina offers no complaints to me this am. She later c/o spine pain and unable to sit in recliner. Requested to go back to bed. OBJECTIVE: [] PAIN: LBP BED MOBILITY/TRANSFERS Supine-sit: Mod A x2 GAIT Assistive Device:STEDY lift in am bed to chair with mod/ max A x2 John lift early pm chair to bed with A x2. THEREX: performed a global UE strengthening routine and core stabilization ex. see flowsheet for details. ASSESSMENT: tolerated ex well. No c/o LBP during ex. She began to c/o LBP after sitting x 3 hours. Requested to go back to bed. I intended on using STEDY lift however she informed me that she wasn't strong enough to use it and requested John lift. PLAN: will continue to work on her UE/ core strength to tolerance. TREATMENT CODE/TIME: 40 min total today. [id number], [id number]
[2022-03-07 15:35] VITALS: BP 130/72; PULSE 74; RESP 19; TEMP 36.7; O2SAT 98
[2022-03-07] MEDS: Senna TAB 1 TAB PO (21:06)
[2022-03-07] MEDS: Melatonin 3 MG TAB 6 MG PO (21:25)
[2022-03-07] MEDS: Acetaminophen 325 MG TAB 650 MG PO (21:25)
[2022-03-07 23:15] VITALS: BP 135/77; PULSE 71; RESP 18; TEMP 36.7; O2SAT 98
[2022-03-08] MEDS: Nystatin POWDER 60 GM JAR TP ×2 (08:21→20:56)
[2022-03-08] MEDS: amLODIPine 10 MG TAB PO (08:21)
[2022-03-08] MEDS: Aspirin E.C. 81 MG TABEC PO (08:22)
[2022-03-08] MEDS: Atorvastatin 40 MG TAB PO (08:22)
[2022-03-08] MEDS: Omeprazole 20 MG CAPCR PO (08:22)
[2022-03-08] MEDS: Baclofen 10 MG TAB PO ×3 (08:22→20:55)
[2022-03-08] MEDS: Docusate Sodium 100 MG CAP PO ×2 (08:22→20:55)
[2022-03-08 08:33] VITALS: BP 123/73; PULSE 84; RESP 19; TEMP 36.5; O2SAT 96
--- NOTE | 2022-03-08 09:38 | WOUNDCONS_ITS ---
- If Service Date Differs Date of service: 03/08/22 Time of Service: 09:38 Wound Initial Evaluation Narrative: This a follow up to the wound consult performed on February 23. Patient denied any pain in the area. She has been repositioned as ordered. Patient has been OOB and up in the chair, and has been eating well. The initial area of concern has now since closed over, 2 small tears have opened up either side of the opening. - Wound Lumbar/Sacral Wound Type: Skin Tear Wound General Appearance: Reddened, Unapproximated Wound Bed Greatest Portion: Red (Granulation) Wound Surrounding Tissue Appearance: Nordic Percent of Wound Bed Granulated/Red: 100 Wound Length: 2.1 cm Wound Width: 0.3 cm Wound Depth: 0.1 cm Wound Drainage Amount: None Wound Drainage Odor: None/Absent Wound Drainage Description: No drainage Wound Topical Solution/Irrigant: Saline Irrigant Wound Debridement Method: Gauze Wound Debridement Result: Healthy Tissue Revealed Wound Debridement Amount of Tissue Removed: Minimal - Circulation, Sensation, Motion Peripheral Pulse Strength: Normal Capillary Refill: Less than 3 seconds Skin Temperature: Warm Skin Color: Normal - Pain Pain Level: 0 The initial area of concerned has closed over, 2 small blanchable skin tears on either side of the initial area of concern - Photo Photo: - Treatment/Dressing Change Topicals/Ointments: Other (triad) Cleanse With: Cleanser with Surfactant Dressing Types: Hydrocollid (Duoderm) - Recomendation Recomendation:: Continue current treatment for 1 more week. Physcian/Nurse Practioner Notified: Yes (Sailaja Paredes) Treatment Time - Time Total Time Spent with Patient: 1 hour - Patient Will be Seen Weekly Treatment: 3x/wk - For: For:: 1 week
[2022-03-08 10:11] LABS: Source Nasal/Nares
[2022-03-08 10:51] LABS: COVID-19 PCR Negative (Negative)
[2022-03-08 15:50] VITALS: BP 130/74; PULSE 73; RESP 19; TEMP 36.4; O2SAT 99
--- NOTE | 2022-03-08 15:52 | PT.INTREAT ---
Date of service: 03/08/22 Time of Service: 11:44 PT Notes Visit Reasons: Paraplegia Inpatient Physical Therapy Treatment Note [facility] Date: 03/08/2022 PRECAUTIONS: Fall, Activity as tolerated SUBJECTIVE: Alina is pleasant and agreeable to participating in PT. She states that she is feeling good today and that her transfer to the chair with nursing went pretty good. OBJECTIVE: ? PAIN: No c/o pain ? BED MOBILITY/TRANSFERS: Completed with nursing prior to PT session. ? THEREX: Patient was instructed in a core strengthening and resisted UE strengthening program, completed in a long-sitting position, as per flow sheet. She utilizes red Theraband and 3# dumbbells with all exercises. She is able to tolerate a progression in her ther ex program, tolerating increased reps. ASSESSMENT: Patient tolerated session well with complaint of increased fatigue.? She was able to tolerate a progression in her ther ex program, tolerating increased reps. PLAN: Continue with UE and core strengthening as well as transfer training for improved mobility. TREATMENT CODE/TIME: 14 minutes; [id number] (11:44)
[2022-03-08] MEDS: Senna TAB 1 TAB PO (20:55)
[2022-03-09 00:47] VITALS: BP 119/77; PULSE 81; RESP 16; TEMP 36.8; O2SAT 95
[2022-03-09 03:29] VITALS: BP 157/95; PULSE 102; RESP 20; TEMP 36.8; O2SAT 99
[2022-03-09 06:15] VITALS: BP 131/73; PULSE 74; RESP 18; TEMP 36.7; O2SAT 97
[2022-03-09] MEDS: Atorvastatin 40 MG TAB PO (07:25)
[2022-03-09] MEDS: Aspirin E.C. 81 MG TABEC PO (07:25)
[2022-03-09] MEDS: Baclofen 10 MG TAB PO ×3 (07:26→19:33)
[2022-03-09] MEDS: amLODIPine 10 MG TAB PO (07:26)
[2022-03-09] MEDS: Omeprazole 20 MG CAPCR PO (07:26)
[2022-03-09] MEDS: Nystatin POWDER 60 GM JAR TP ×2 (07:26→19:35)
[2022-03-09] MEDS: Docusate Sodium 100 MG CAP PO ×2 (07:26→19:34)
--- NOTE | 2022-03-09 08:59 | PTTR_ITS ---
Date of service: 03/09/22 Time of Service: 08:05 PT Notes Visit Reasons: Paraplegia Inpatient Physical Therapy Treatment Note [facility] Date: 03/09/2022 PRECAUTIONS: Fall, activity as tolerated SUBJECTIVE: Alina is pleasant and agreeable to participating in PT. She expresses concern regarding the ability to get dressed at the SNF-level facility she hopes to be placed at. Adry, ESPERANZA discussed several methods, which helped ease her concern. OBJECTIVE: PAIN: No c/o pain BED MOBILITY/TRANSFERS Supine-sit: Min A with HOB at 40 degrees and use of leg gear shaper set up operator Sit-stand: Mod A x2 with STEDY Stand-sit: Min A x2 with STEDY Bed-Chair: STEDY GAIT: Unable THEREX: Patient was instructed in a resisted UE and core strengthening program, completed in a long-sitting position, as per flow sheet. She utilizes 3# dumbbells and red Theraband with exercise completion. She also performs functional [id number] exercise in STEDY lift. ASSESSMENT: Patient tolerated session with complaint of increased UE fatigue with ther ex completion. She continues to require assist with transfers and bed mobility, and use of STEDY lift for transfer from [id number]. PLAN: Continue with core and UE strengthening as well as transfer training for improved mobility and activity tolerance. TREATMENT CODE/TIME: 26 minutes; [id number], [id number] (08:05)
--- NOTE | 2022-03-09 09:15 | W.NUTRFU ---
Date of service: 03/09/22 Time of Service: 09:15 Nutrition Note NOTE: Alina is following Regular meal plan with adequate intake. Weight Stable with BMI of 34 indicative of class 1 obesity. Not considered at nutritional risk. Will continue to follow and support. Time Spent in Nutritional Counseling and Treatment: 0
--- NOTE | 2022-03-09 13:55 | PDOC.CMPRO ---
- If Service Date Differs Date of service: 03/09/22 Time of Service: 13:55 Care Management Progress Note S/O: Alina is in SB-1 working with PT [facility]. [facility]. Alina will transport tomorrow via facility w/c van at 11 am. A: Alina is a 66 year old woman admitted on 02/22/22 with weakness. P: Alina is awaiting placement in a SNF. A bed offer was received and accepted at [facility] for tomorrow. Transport will be at 11 am via facility wheelchair van. A prison medicaid application was submitted last week and a copy will go with her. CM will continue to support Alina and her discharge needs.
--- NOTE | 2022-03-09 15:30 | CHAPLAIN ---
Alina has been awaiting placement, and today's Care Management note states that [facility] and will be transferred there tomorrow. When I visited with Alina today, she responded to questions, but didn't seem comfortable with a conversation beyond basic question. She like the food here.
[2022-03-09 15:35] VITALS: BP 141/84; PULSE 78; RESP 19; TEMP 36.7; O2SAT 99
[2022-03-09] MEDS: Senna TAB 1 TAB PO (21:13)
[2022-03-09 23:22] VITALS: BP 131/73; PULSE 72; RESP 18; TEMP 36.4; O2SAT 96
[2022-03-10 07:30] VITALS: BP 138/88; PULSE 75; RESP 18; TEMP 36.5; O2SAT 99
[2022-03-10] MEDS: Aspirin E.C. 81 MG TABEC PO (07:52)
[2022-03-10] MEDS: Omeprazole 20 MG CAPCR PO (07:52)
[2022-03-10] MEDS: amLODIPine 10 MG TAB PO (07:52)
[2022-03-10] MEDS: Baclofen 10 MG TAB PO (07:52)
[2022-03-10] MEDS: Docusate Sodium 100 MG CAP PO (07:52)
[2022-03-10] MEDS: Atorvastatin 40 MG TAB PO (07:53)
[2022-03-10] MEDS: Nystatin POWDER 60 GM JAR TP (07:54)
--- NOTE | 2022-03-10 08:58 | W.PM.DS.N ---
Date of service: 03/10/22 Time of Service: 08:58 DS: Diagnosis Discharge Diagnosis (1) Paraplegia: Status: Acute (2) Bilateral leg weakness: Status: Acute Discharge Plan Disposition Patient Disposition: SNF (LEVEL 1) [facility] Condition: Stable Discharge Details Reason For Visit: Paraplegia Admit Date/Time: 02/22/22 20:57 Admit Provider: Alexis Shaw Attending Provider: Alexis Shaw Primary Care Provider: Unknown,Unknown Hospital Course Hospital Course: This is an obese female who presented to the ED very deconditioned unable to care for herself. she had previously had a stay at a rehab facility and was ultimately discharged back to home. At home she slowly declined, relying on caregivers for her care. It came to the point that the caregivers decided they were no longer available to care for her and dropped her off at the ED as she couldn't be left home alone. She was initially admitted to swing bed level 2 but after PT evaluation they recommended swing level 1 for rehabilitation. She began working with physical therapy and slowly progressing. she remains chair bound, required steady lift for transfers medically she has remained stable, eating and drinking and bowel and bladder functioning well. She is still unable to care for herself so can not be safely discharged to home and recommendations are for ongoing inpatient rehabilitation. Referrals have been placed and she was accepted at [facility]. she is being discharged by ground transportation. discharge discussed with Dr Fox. Home Meds and New Rx's Prescriptions: New Acetaminophen [Tylenol] 650 mg PO Q4H PRN PRNQty: 0 0RF sennosides [Senokot] 8.6 mg Tablet 1 tab PO HS Qty: 0 0RF polyethylene glycol 3350 17 gram Powder In Packet 17 g PO DAILY PRN PRN (Reason: Constipation) Qty: 0 0RF melatonin 3 mg Tablet 6 mg PO HS PRN PRNQty: 0 0RF docusate sodium [Colace] 100 mg Capsule 100 mg PO BID Qty: 0 0RF Continued aspirin 81 mg Capsule,Delayed Release(Dr/Ec) 81 mg PO DAILY 0RF omeprazole 20 mg Capsule,Delayed Release(Dr/Ec) 20 mg PO DAILY 0RF amlodipine-atorvastatin 10-40 mg Tablet 1 tab PO DAILY 0RF Discharge Instructions Stand Alone Forms: Nursing Discharge Form Referrals: Unknown,Unknown [Primary Care Provider] - (routine rehab follow up ) Activity:: Activity as Tolerated Equipment/Supplies:: steady lift Diet:: As Tolerated Discharge Orders Discharge Orders: Discharge Order (Routine); Ordered 03/10/22 Ordered By: Jailene Carlos DS: Summary Time Spent with Patient providing and/or coordinating discharge services: Greater than 30 minutes Status at Discharge Functional status at discharge: wheelchair bound Overall status at discharge: patient is not back to baseline Mental Status: mental status grossly normal Speech and Movement: speech and movement normal Mood: congruent mood Affect: normal affect Exam Const General: cooperative, comfortable and no acute distress Nutritional Appearance: obese Orientation: alert, awake and oriented x3 HENMT Head: normal to inspection, normocephalic and atraumatic Mouth: oral mucosae normal Resp Effort & Inspection: normal respiratory effort Cardio Rate: regular rate Rhythm: regular rhythm GI Inspection: large pannus and obesity Palpation: soft and nontender Neuro General: patient alert, patient awake and patient oriented x3 Extrem General: edema (flacid lower extremities. can bear weight with steady lift) Laterality: bilateral Psych Appearance: grossly normal Mental Status: mental status grossly normal Speech and Movement: speech and movement normal Mood: congruent mood Affect: normal affect Attitude: cooperative Thought Process: normal Thought Content: normal Insight: fair Judgment: fair DS: Data Vitals/I&O Vitals and I&O: Vital Signs Temperature 36.5 C 03/10/22 07:30 Temperature Source Tympanic 03/10/22 07:30 Pulse 75 03/10/22 07:30 Pulse Rhythm Regular 03/10/22 07:16 Respiratory Rate 18 03/10/22 07:30 Respiratory Effort Non-Labored 03/10/22 07:16 Respiratory Depth Normal 03/10/22 07:16 Respiratory Pattern Normal 03/10/22 07:16 Blood Pressure 138/88 03/10/22 07:30 Blood Pressure Position Supine 02/22/22 18:30 Pulse Oximetry 99 03/10/22 07:30 Oxygen Delivery Method Room Air 03/10/22 07:30 Oxygen Flow Rate 0 03/10/22 07:30 Pain Level 0 03/10/22 07:30 Comment 02/27/22 15:54 Intake & Output 03/09/22 03/09/22 03/10/22 11:59 23:59 11:59 Intake Total 1130 / 1130 Output Total 500 / 500 Balance 1130 / 1130 -500 / -500 Weight 102.6 kg Intake: Oral 1130 / 1130 Output: Urine 500 / 500 Other: Urine Color Yellow Yellow Yellow Urine Appearance Cloudy Cloudy Urine Odor Normal Normal Comment voided a large amount Stool Size Smear Stool Characteristics Soft Brown Voiding Methods Diaper Diaper Diaper Incontinent Incontinent Incontinent PFSH All Active Problems (Updated 02/22/22 @ 20:54 by Alexis Shaw MD) Paraplegia (Acute) Bilateral leg weakness (Acute) Social History Smoking/Tobacco Use Status: Never Smoking risk assessment performed?: Yes Alcohol Intake: never Drug use: Never
--- NOTE | 2022-03-10 10:22 | CMDISCH_ITS ---
- If Service Date Differs Date of service: 03/10/22 Time of Service: 10:22 LACE Index Scoring Tool - Questions: Length of Stay (in days): 14 or more Acuity (Admit via E.D.?): Yes Comorbidities: Cerebrovascular Disease E.D. Visits: 1 - Answers: Total Score: 12 Risk of Readmission: High Risk Care Management Discharge Reason for Hospitalization: BLE weakness Discharge Plan: Alina will be transferred to [facility] for short term rehab, possibly transitioning to long-term care. Transport will be at 11 am via facility wheelchair van. A accounts payable processor medicaid application was submitted last week and a copy will go with her. Patient/Family Education Needs: Review of discharge instructions, expectations, limitations, activity and Ask Me Three Services Needed at Discharge: [facility] Facility
--- NOTE | 2022-03-10 11:09 | CHAPLAIN ---
I visited with Alina shortly before she was scheduled to be discharged to [facility], and gave her a prayer shawl.
--- NOTE | 2022-03-10 18:00 | PT.INDS ---
Date of service: 03/10/22 PT Notes Visit Reasons: Paraplegia Physical Therapy Inpatient Discharge Summary Date: 03/10/2022 Dates of Service: 02/24/2022 through 03/09/2022 This is a clinical summary of care provided for the duration of dates listed above. No charge was made in the completion of this documentation. Referring Doctor: Jason Fox MD PT Orders: PT CONSULT: Eval/treat Precautions: Fall. Standard. Activity as tolerated. Wheelchair-bound. Patient Profile/Admitting Diagnosis: Alina is a 66-year-old female who presented to the ED on 01/25/2022 due to a fall at home during transfer with caregivers at home.? Patient is diagnosed with paraplegia. PMHX: All Active Problems?(Updated 02/22/22 @ 20:54 by Alexis Shaw MD) Paraplegia (Acute) Bilateral leg weakness (Acute) Social History/Home Situation: Patient states that she stays with her daughter's boyfriend's mother' house.? Patient states that the daughter's boyfriend and another male house member with a heart issue have been helping her with transfers.? Equipment Owned/DME: Wheelchair Subjective: NT. See most recent HEPATOLOGY PHYSICIAN notes. Objective: General Observation: NT. See most recent HEPATOLOGY PHYSICIAN notes. Mental Status: NT. See most recent HEPATOLOGY PHYSICIAN notes. Pain: NT. See most recent HEPATOLOGY PHYSICIAN notes. ROM: Right Upper Extremity: ? Shoulder Flexion WFL. Shoulder abduction WFL. Elbow flexion WFL. Wrist flexion WFL. Functional opening and closing of hand WFL. Left Upper Extremity:? Shoulder Flexion WFL. Shoulder abduction WFL. Elbow flexion WFL. Wrist flexion WFL. Functional opening and closing of hand WFL. Right Lower Extremity: Unable to move any part of extremity Left Lower Extremity: Unable to move any part of extremity Strength: Right Upper Extremity: Shoulder flexors 4/5. Shoulder abductors 4/5. Elbow flexors 4/5. Elbow extensors 4/5. Software Educator strong. Left Upper Extremity: Shoulder flexors 4/5. Shoulder abductors 4/5. Elbow flexors 4/5. Elbow extensors 4/5. Software Educator strong. Right Lower Extremity: Hip flexors 0/5. Hip abductors 0/5. Knee flexors 0/5. Knee extensors 0/5. Ankle dorsiflexors 0/5. Ankle plantarflexors 0/5. Left Lower Extremity: Hip flexors 0/5. Hip abductors 0/5. Knee flexors 0/5. Knee extensors 0/5. Ankle dorsiflexors 0/5. Ankle plantarflexors 0/5. Bed Mobility/Transfers: Supine to sit modified independent with HOB at 30 degrees with patient pulling from bilateral leg rails Scoot to L side unable Scoot to R side unable Scoot back unable Scoot forward unable THERA EX:? B UE strengthening consisting of shoulder horizontal abduction/adduction/scauplar protaction/retraction x 15,? shoulder flexion and extension x 15, Elbow flexion/extension x 15 using 3 lb DB.? Abdominal muscle activation from a reclined position in bed x 10 for 2 sets.? Worked on partially elevating pelvis using B hands pushing down in bed x 10. Gait: Unable Balance: Static Sitting: Fair Dynamic Sitting: Poor Static Standing: Unable Dynamic Standing: Unable Special Tests: Mobility Limitations Standardized Measure [facility] 6 clicks Basic Mobility Inpatient Short Form: Raw Score: 8 CMS Score: 87% deficit? ? ? Assessment: Alina continues to demonstrate inability to volitionally move bilateral lower extremities. May need to look at neurology notes from previous consult to better plan mobility goals.? She has worked hard with PT towards B UE/trunk strengthening but continues to need mechanical lift for all transfers for nursing staff.? Due to anxiety over falling and impaired cognition with limited ability to follow instructions, prognosis for achieving goals below is fair.? Will continue to assess a better transfer device between STEDY lift versus slide board depending on trunk stability and strength. Patient presents with clinical signs and symptoms consistent with current/admitting diagnoses that have resulted to mobility limitations, gait instability, generalized weakness, and overall ADL decline as demonstrated by the following impairment level findings: 1.? Decreased strength to trunk and BUE/LE major muscle groups 2.? Impaired sitting/standing balance 3.? Impaired activity tolerance 4.? HIgh anxiety and fearfulness of falling Impairments are contributing to the following functional limitations: 1.? Decline in bed mobility skills 2.? Decline in transfer skills 3.? Increased risk for skin breakdown 4.? Increased risk for further functional mobility decline Goals: Goals X1 week 1. Supine-Sit contact-guard assist NOT MET, CONTINUE AT SNF 2. Sit-Supine minimal assist to BLE NOT MET, CONTINUE AT SNF 3. Bed-Chair contact-guard assist with slide board NOT MET DOWNGRADE to minimal assist of 2, CONTINUE AT SNF 4. Chair-Bed contact-guard assist with slide board NOT MET DOWNGRADE to minimal assist of 2, CONTINUE AT SNF 5. Good sitting balance and tolerance to increase safety of slide board transfers? NOT MET, CONTINUE AT SNF DISCHARGE RECOMMENDATIONS: [] ? Home with no services [] [] ? Home with services [specify] [] ? Home with outpatient PT [] [X] ? SNF for continued rehabilitation.? Patient will benefit from [facility] facility placement for continued skilled physical therapy services in order to progress mobility level, strength, and balance to reduce fall risk. [] ? [facility] Care [] [] ? SNF versus LTC based on ability to participate and progress [] TREATMENT CODE/TIME: NC Thank you for the opportunity to participate in the care of this patient. Ana Trejo PT, DPT, CLT [facility] [place], [place]
== END 2022-03-10 11:11 | disposition skilled nursing facility (03) | DRG 53 ==
LOC: ER 19:57 → MS 22:41
PROVIDERS: Nurse Practitioner Family; Admitting Provider General Practice; Emergency Provider Emergency Medicine; Visit Provider General Practice
DX: G82.20 Paraplegia, unspecified (principal); Z74.2 Need for assistance at home and no other household member able to render care; Z99.3 Dependence on wheelchair; E66.9 Obesity, unspecified; Z68.34 Body mass index [BMI] 34.0-34.9, adult; R32 Unspecified urinary incontinence; I10 Essential (primary) hypertension; E78.5 Hyperlipidemia, unspecified; R60.0 Localized edema; L98.421 Non-pressure chronic ulcer of back limited to breakdown of skin; R53.1 Weakness
CPT/HCPCS: 80053; 87635; 97110; 97162; 97530; 99285; 99304; 99307; 99316; U0005; 81003; 81015; 83735; 85025; 99284

== ENCOUNTER → 2022-02-24 07:27 | Outpatient (BNVA) | payer MEDICARE, MEDICAID, SELFPAY | PROVIDERS: Visit Provider Psychiatry & Neurology Neurology | DX: R69 Illness, unspecified (principal) ==

== ENCOUNTER → 2022-04-19 02:07 | Outpatient (CLI) | payer MEDICARE, MEDICAID, SELFPAY ==
--- NOTE | 2022-04-19 10:45 | DI.MRI_ITS ---
Exam(s) MR LUMBAR SPINE WO EXAM: MR LUMBAR SPINE WO CLINICAL HISTORY: SACRAL PLEXOPATHY, LOWER EXTREMITY WEAKNESS, POOR RECTAL TONE. TECHNIQUE: Multiplanar multisequence MRI of the Lumbar spine was performed. COMPARISON: No exams were available for comparison FINDINGS: Bones: The last intervertebral disc space is designated the L5/S1 level for the numbering purpose of this examination. The vertebral body heights are well maintained. Alignment is satisfactory. The ma rrow signal characteristics are unremarkable. Cord: The conus tip ends at the T12 level. It is of normal size and signal intensity. T12-L1: No disc herniations or bulges are present. No central spinal canal or neural foraminal stenos is. L1-2: Minimal endplate osteophytes. No disc herniations or bulges are present. No central spinal ezio l or neural foraminal stenosis. L2-3: No disc herniations or bulges are present. No central spinal canal or neural foraminal stenosis . L3-4: Small endplate osteophytes. Mild disc bulging eccentric toward the right causing mild neural fo raminal narrowing.. Facet degenerative changes and ligamentous hypertrophy cause mild central canal s tenosis L4-5: No disc herniations or bulges are present. Facet degenerative changes and ligamentous hypertrop hy cause mild narrowing the transverse diameter of the canal and mild right neural foraminal encroach ment.. L5-S1: No disc herniations or bulges are present. Mild central canal stenosis. Asymmetric facet degen erative changes, greater on the right. The visualized SI joints are well maintained. Visualized portions of the sacral nerve roots appear i ntact. Soft tissues: Large quantity of stool is noted in the rectum. A small portion of the urinary bladder is included on the exam and appears distended. There is severe atrophy of the posterior paraspinal mu scles, right psoas as well as visualized portions of the gluteus muscles. There is a small amount of fluid in the posterior pelvis. IMPRESSION: Mild central canal stenosis at L3-4, L4-5 and L5-S1 mainly secondary to facet degenerative changes. M ild right neural foraminal narrowing at L3-4 and L4-5... Distended urinary bladder. Rectum is distended with stool. Severe muscle atrophy. DATA REPOSITORY:
== END ==
PROVIDERS: Visit Provider Nurse Practitioner Family
DX: M48.061 Spinal stenosis, lumbar region without neurogenic claudication (principal); M47.816 Spondylosis without myelopathy or radiculopathy, lumbar region; M62.81 Muscle weakness (generalized); K62.89 Other specified diseases of anus and rectum; M51.36 Other intervertebral disc degeneration, lumbar region; K59.00 Constipation, unspecified; M62.58 Muscle wasting and atrophy, not elsewhere classified, other site
CPT/HCPCS: 72148

== ENCOUNTER 2022-05-07 02:56 | Outpatient (REF) | payer MEDICARE, MEDICAID, SELFPAY | END 2022-05-07 02:57 | disposition home or self-care (01) | LOC: LBN 02:56 | PROVIDERS: Visit Provider Nurse Practitioner Family | DX: G82.22 Paraplegia, incomplete (principal); R82.998 Other abnormal findings in urine | CPT/HCPCS: 87077; 87086; 87186 ==

== ENCOUNTER 2022-05-20 20:51 | Outpatient (REF) | payer MEDICARE, MEDICAID, SELFPAY | END 2022-05-20 20:52 | disposition home or self-care (01) | LOC: LBN 20:51 | PROVIDERS: Visit Provider Nurse Practitioner Family | DX: N30.00 Acute cystitis without hematuria (principal) | CPT/HCPCS: 87077; 87086; 87186 ==

== ENCOUNTER 2022-08-10 04:20 | Outpatient (REF) | payer MEDICARE, MEDICAID, SELFPAY ==
[2022-08-10 06:07] LABS: ALT 14 U/L (14-59); AST 7 U/L (15-37); Albumin 2.8 g/dL (3.4-5.0); Alkaline Phosphatase 124 U/L (46-116); Anion Gap 6.9 mmol/L (3-11); BUN 14 mg/dL (7-18); Bilirubin, Total 0.3 mg/dL (0.2-1.0); CO2 27.1 mmol/L (21.0-32.0); CREATININE 0.6 mg/dL (0.55-1.02); Calcium 9.4 mg/dL (8.5-10.1); Chloride 107 mmol/L (98-107); Glucose 184 mg/dL (74-106); Potassium 4.1 mmol/L (3.5-5.1); Sodium 141 mmol/L (136-145); Total Protein 6.5 g/dL (6.4-8.2)
== END 2022-08-10 04:21 | disposition home or self-care (01) ==
LOC: LBN 04:20
PROVIDERS: Visit Provider Family Medicine
DX: U07.1 COVID-19 (principal)
CPT/HCPCS: 80053

== ENCOUNTER → 2022-10-26 10:35 | Outpatient (BNVA) | payer MEDICARE, MEDICAID, SELFPAY | PROVIDERS: Visit Provider Psychiatry & Neurology Neurology | DX: Z86.73 Personal history of transient ischemic attack (TIA), and cerebral infarction without residual deficits (principal); Z79.82 Long term (current) use of aspirin; I10 Essential (primary) hypertension; E78.5 Hyperlipidemia, unspecified; Z99.3 Dependence on wheelchair; G82.22 Paraplegia, incomplete | CPT/HCPCS: 99214 ==

== ENCOUNTER 2022-10-27 10:53 | Outpatient (REF) | payer MEDICARE, MEDICAID, SELFPAY ==
[2022-10-27 12:06] LABS: Abs Immature Grans 0.02 10^3/uL (0.0-0.06); Absolute Basophil Count 0.04 10^3/uL (0.0-0.2); Absolute Eosinophil Count 0.23 10^3/uL (0.0-0.7); Absolute Lymphocyte Count 2.53 10^3/uL (1.2-3.4); Absolute Monocyte Count 0.41 10^3/uL (0.1-0.8); Absolute Neutrophil Count 6.07 10^3/uL (1.2-6.7); Basophils % 0.4; Eosinophils % 2.5; HCT 34.9 % (36.0-46.0); HGB 10.9 g/dL (11.2-15.7); Immature Grans % 0.2; Lymphocytes % 27.2; MCH 25.6 pg (27.0-33.0); MCHC 31.2 % (32.0-36.0); MCV 82 fL (80-95); MPV 10.9 fL (8.0-11.0); Monocytes % 4.4; Neutrophils % 65.3; Platelet Count 304 10^3/uL (130-400); RBC 4.26 10^6/uL (3.93-5.22); RDW 14.3 % (11.7-14.6); RDW-SD 41.3 fL
[2022-10-27 12:27] LABS: ESR 43 mm/hr (0-30)
== END 2022-10-27 10:54 | disposition home or self-care (01) ==
LOC: LBN 10:53
PROVIDERS: Visit Provider Family Medicine
DX: G82.22 Paraplegia, incomplete (principal)
CPT/HCPCS: 80053; 85652; 82607; 82746; 85025; 86140; 86592

== ENCOUNTER 2022-10-29 11:00 | Outpatient (REF) | payer MEDICARE, MEDICAID, SELFPAY ==
[2022-10-29 13:10] LABS: Abs Immature Grans 0.05 10^3/uL (0.0-0.06); Absolute Basophil Count 0.03 10^3/uL (0.0-0.2); Absolute Eosinophil Count 0.22 10^3/uL (0.0-0.7); Absolute Lymphocyte Count 2.33 10^3/uL (1.2-3.4); Absolute Monocyte Count 0.74 10^3/uL (0.1-0.8); Absolute Neutrophil Count 10.39 10^3/uL (1.2-6.7); Basophils % 0.2; Eosinophils % 1.6; HCT 36.2 % (36.0-46.0); HGB 11.2 g/dL (11.2-15.7); Immature Grans % 0.4; Lymphocytes % 16.9; MCH 25.2 pg (27.0-33.0); MCHC 30.9 % (32.0-36.0); MCV 82 fL (80-95); MPV 10.4 fL (8.0-11.0); Monocytes % 5.4; Neutrophils % 75.5; Platelet Count 334 10^3/uL (130-400); RBC 4.44 10^6/uL (3.93-5.22); RDW 14.1 % (11.7-14.6); WBC 13.76 10^3/uL (4.4-10.8)
[2022-10-29 13:12] LABS: ESR 42 mm/hr (0-30)
[2022-10-29 13:47] LABS: ALT 15 U/L (14-59); AST 6 U/L (15-37); Albumin 3.1 g/dL (3.4-5.0); Alkaline Phosphatase 144 U/L (46-116); Anion Gap 8.7 mmol/L (3-11); BUN 14 mg/dL (7-18); Bilirubin, Total 0.3 mg/dL (0.2-1.0); CO2 27.3 mmol/L (21.0-32.0); CREATININE 0.6 mg/dL (0.55-1.02); Calcium 9.4 mg/dL (8.5-10.1); Chloride 107 mmol/L (98-107); Folate 12.4 ng/mL (8.6-20.0); Glucose 152 mg/dL (74-106); Potassium 3.8 mmol/L (3.5-5.1); Sodium 143 mmol/L (136-145); Total Protein 6.7 g/dL (6.4-8.2); Vitamin B12 270 pg/mL (193-986)
[2022-10-29 14:02] LABS: C-Reactive Protein 1.23 mg/dL (0.0-0.3)
[2022-11-01 09:53] LABS: Syphilis Serology (RPR) Negative (Negative)
== END 2022-10-29 11:01 | disposition home or self-care (01) ==
LOC: LBN 11:00
PROVIDERS: Visit Provider Family Medicine
DX: G82.22 Paraplegia, incomplete (principal)
CPT/HCPCS: 80053; 85652; 82607; 82746; 85025; 86140; 86592

== ENCOUNTER 2022-11-26 00:22 | Outpatient (CLI) | payer MEDICARE, MEDICAID, SELFPAY ==
--- NOTE | 2022-11-26 | DI.MRI_ITS ---
Exam(s) MR THORACIC SPINE WO EXAM: MR THORACIC SPINE WO CLINICAL HISTORY: PROGRESSIVE PARAPLEGIA. TECHNIQUE: Multiplanar multisequence MRI of the Thoracic spine was performed. CONTRAST MATERIAL: IV Contrast: mL of Dotarem contrast administered. COMPARISON: MR MR CERVICAL SPINE WO/W from 11/26/2022 FINDINGS: Bones: The vertebral body heights are well maintained. Alignment is satisfactory. The signal characte ristics are mildly heterogeneous. There is small hemangioma in T10 and questionably in T12.. No sanabria spicious enhancing lesions. There is some anterior bony bridging a from T8 through T10. Cord: At C 7 T1 level, there is a low signal ovoid mass with postcontrast enhancement within the leeanna tral canal. Please see separate MRI cervical spine report. No additional lesions are seen distally in the cord. There is no evidence of syrinx or areas of demyelination. Cord diameter is normal dist al to the T1 level. Discs: No disc herniation or bulge is present. There is mild disc bulging at T11-12 and facet degener ative changes causing neural foraminal narrowing. Neural foraminal narrowing is also noted at T 10 1 1 secondary to encroachment by facet degenerative changes. Soft tissues: Normal. IMPRESSION: Mass seen within the central canal at the C7-T1 level. please see separate C-spine CT. No addition al cord lesions. The degenerative changes of the thoracic spine with neural foraminal narrowing at T10-11 and T11-12. DATA REPOSITORY:
--- NOTE | 2022-11-26 | DI.MRI_ITS ---
Exam(s) MR BRAIN WO EXAM: MR BRAIN WO CLINICAL HISTORY: PROGRESSIVE PARAPLEGIA. TECHNIQUE: Multiplanar multisequence MRI of the brain was performed. CONTRAST MATERIAL: Noncontrast COMPARISON: No exams were available for comparison FINDINGS: VENTRICLES AND EXTRA AXIAL SPACES: Compensatory dilatation of the right lateral ventricle. HEMORRHAGE: None. 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 Other sm all foci of increased signal are noted bilaterally consistent with small vessel disease. No focus of restricted diffusion to suggest acute infarct. No space-occupying lesion identified. Mild atrophy. MIDLINE SHIFT: None. BRAINSTEM/CEREBELLUM: Normal. VISUALIZED PARANASAL SINUSES/MASTOIDS: Near complete opacification of the maxillary sinuses. Mucous retention in a few ethmoid sinuses OTHER FINDINGS: None. 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 Chronic sinus disease. No acute hemorrha ge or infarct. DATA REPOSITORY:
--- NOTE | 2022-11-26 | DI.MRI_ITS ---
Exam(s) MR CERVICAL SPINE WO/W EXAM: MR CERVICAL SPINE WO/W CLINICAL HISTORY: PROGRESSIVE PARAPLEGIA TECHNIQUE: Multiplanar multisequence MRI of the cervical spine was performed without intravenous con trast. COMPARISON: MR MR LUMBAR SPINE WO from 04/19/2022 FINDINGS: BONES: Vertebral body heights are maintained. Alignment is normal. Bone marrow signal intensity is so mewhat heterogeneous but no a suspicious enhancing lesions are seen. CERVICAL CORD: Craniovertebral junction is unremarkable. There is a mass within the central canal wh ich appears to be intramedullary at the C7-T1 level which measures 2.2 cm in length and occupies the entire AP with of the canal in near the entire nearly the entire transverse width of the canal. It i s low signal on T1 and T2 weighted images and shows postcontrast enhancement since with signal simila r to bone. SOFT TISSUES: Unremarkable. There are prominent degenerative changes at C1-2, greater on the right.. No significant central ezio l stenosis. There are degenerative disc changes and facet degenerative changes throughout causing bi lateral neural foraminal narrowing. No focal disc herniation. 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 DATA REPOSITORY:
[2022-11-26] MEDS: Gadoterate meglumine 20 ML VIAL IVP (15:38)
== END 2022-11-26 00:42 ==
PROVIDERS: Visit Provider Family Medicine
DX: G82.22 Paraplegia, incomplete (principal)
CPT/HCPCS: 70551; 72146; 72156

== ENCOUNTER → 2022-12-08 11:20 | Outpatient (BNVA) | payer MEDICARE, MEDICAID, SELFPAY | PROVIDERS: Visit Provider Psychiatry & Neurology Neurology | DX: Z99.3 Dependence on wheelchair (principal); Z86.73 Personal history of transient ischemic attack (TIA), and cerebral infarction without residual deficits; I10 Essential (primary) hypertension; G82.22 Paraplegia, incomplete; G95.89 Other specified diseases of spinal cord | CPT/HCPCS: 99214 ==

== ENCOUNTER → 2023-02-08 10:09 | Outpatient (BNVA) | payer MEDICARE, MEDICAID, SELFPAY | PROVIDERS: Visit Provider Psychiatry & Neurology Neurology | DX: Z86.73 Personal history of transient ischemic attack (TIA), and cerebral infarction without residual deficits (principal); Z79.82 Long term (current) use of aspirin; E53.8 Deficiency of other specified B group vitamins; I10 Essential (primary) hypertension; E78.5 Hyperlipidemia, unspecified; G82.22 Paraplegia, incomplete; G95.89 Other specified diseases of spinal cord | CPT/HCPCS: 99214 ==

== ENCOUNTER 2023-02-25 10:43 | Outpatient (CLI) | payer MEDICARE, MEDICAID, SELFPAY | END 2023-02-25 10:44 | disposition home or self-care (01) | LOC: CARDOPNVT 10:43 | PROVIDERS: Visit Provider Physician Assistant | DX: G45.9 Transient cerebral ischemic attack, unspecified (principal) | CPT/HCPCS: 93270 ==

== ENCOUNTER 2023-03-07 17:06 | Outpatient (REF) | payer MEDICARE, MEDICAID, SELFPAY ==
[2023-03-07 17:56] LABS: Anion Gap 6.8 mmol/L (3-11); BUN 17 mg/dL (7-18); CO2 26.2 mmol/L (21.0-32.0); CREATININE 0.6 mg/dL (0.55-1.02); Calcium 9.7 mg/dL (8.5-10.1); Chloride 108 mmol/L (98-107); Glucose 167 mg/dL (74-106); Magnesium 1.8 mg/dL (1.8-2.4); Potassium 4.1 mmol/L (3.5-5.1); Sodium 141 mmol/L (136-145)
== END 2023-03-07 17:07 | disposition home or self-care (01) ==
LOC: LBN 17:06
PROVIDERS: Visit Provider Physician Assistant
DX: M62.81 Muscle weakness (generalized) (principal)
CPT/HCPCS: 80048; 83735

== ENCOUNTER 2023-04-01 06:59 | Outpatient (CLI) | payer MEDICARE, MEDICAID, SELFPAY ==
--- NOTE | 2023-04-01 08:36 | W.CARDEVENT ---
Date of service: 04/01/23 Time of Service: 08:36 Cardiac Event Recorder Referring Provider:: Twyla Sierra Indications:: Transient cerebral ischemia Cardiac Event Note: This is a 30-day cardiac event monitor ordered for transient cerebral ischemia Patient was monitored for a total of 14 days Predominant rhythm was sinus with an average heart rate of 80. There was no bradycardia. Maximum heart rate was 108 There were sporadic ventricular ectopic beats. There were several runs of nonsustained ventricular tachycardia. The longest of these was 10 beats in duration There were rare atrial premature beats There was no atrial fibrillation, no high-grade AV block, no pauses greater than 3 seconds The episode labeled atrial fibrillation was sinus with premature atrial contractions
== END 2023-04-01 07:00 | disposition home or self-care (01) ==
LOC: CARDOPNVT 06:59
PROVIDERS: Visit Provider Internal Medicine Cardiovascular Disease
DX: G45.9 Transient cerebral ischemic attack, unspecified (principal); I47.20 Ventricular tachycardia, unspecified
CPT/HCPCS: 93272

== ENCOUNTER 2023-04-06 12:23 | Outpatient (CLI) | payer MEDICARE, MEDICAID, SELFPAY ==
--- NOTE | 2023-04-06 14:01 | DI.US_ITS ---
APPROVED REPORT EXAM: Comprehensive 2D, Doppler, and color-flow Echocardiogram Patient Location: Out-Patient Certified Physician Assistant: Justine Adames RDCS ([facility]) Indications: Stroke workup Other Information Study Quality: Technically Limited. Technically limited study due to termination of the exam by danilo ent due to pain unrelated to the scan.Body habitus limited image quality.. Conclusion Technically very limited and suboptimal study Left ventricular chamber size is normal. There is mild concentric left ventricular hypertrophy. Eje ction fraction is approximately 60%. Wall motion could not be accurately assessed Right ventricle was not well visualized but did not appear dilated Both atria were not well visualized Aortic valve is calcified. There was no regurgitation. Gradients did not suggest significant stenos is Mild mitral annular calcification. Trace mitral regurgitation Mildly dilated ascending aorta Wall motion Left Ventricle The left ventricle is grossly normal size. The overall left ventricular systolic function appears nor mal with limited views abtained. Mild concentric left ventricular hypertrophy. LVEF is 57%. Right Ventricle Right ventricle is not visualized but appears grossly normal in size. Right ventricular systolic func tion could not be assessed. Atria Left atrium is not well visualized. Right atrium is not visualized. Aortic Valve Aortic valve is calcified. No hemodynamically significant valvular aortic stenosis. No aortic regurgi tation is present. Mitral Valve Mild mitral annular calcification. No evidence of mitral valve stenosis. Trace mitral regurgitation. Tricuspid Valve The tricuspid valve is not visualized. Pulmonic Valve Pulmonic valve is not visualized. Great Vessels The aortic root is normal in size. The ascending aorta is mildly dilated. The IVC was not visualized. Pericardium Exam was technically limited, no subcostal imaging. 2D Dimensions IVSD d PLAX 1.21 cm F: 0.6-1.0 LV Vol A4C d MOD 136.3 mL LVPW d PLAX 1.21 cm F: 0.6 - 1.0 LV EF A4C MOD 57.3 % LVID d PLAX 3.90 cm F: 3.8 - 5.2 LVDs 2.80 cm F: 2.2 - 3.5 Ao Root d 3.13 cm F: 2.7 - 3.3 Ao Asc Diam d 3.38 cm F: 2.3 - 3.1 LV EF Teichholz 53.6 % LV Volume Index 64.06 mL/m2 F: 29 - 61 FS 27.20 % LV Diastology E/A Ratio 1.2 MV E Vmax 0.58 (0.4-1.3 m/s) MV A Vmax 0.50 (0.4-1.3 m/s) MV E/A Ratio 1.15 Aortic Valve LVOT Area 4.42 cm2 AoV Area Vmax 1.16 cm2 LVOT Vmax 0.68 m/s AoV Area/ BSA (Vmax) 0.54 cm2/m2 LVOT Mean Hank. 0.44 m/s BRITTANI Mean Hank. 1.03 cm2 LVOT Peak Grad 1.8 mmHg BRITTANI Mean Hank. Index 0.49 cm2/m2 LVOT Mean Grad 0.9 mmHg LVOT VTI 0.137 m LVOT Diam s 2.35 cm AoV Vmax 2.58 m/s Velocity Ratio 0.26 AoV Mean Hank. 1.90 m/s AoV Peak Grad 26.7 mmHg LVOT SV 60.54 mL AoV Mean Grad 15.8 mmHg AoV VTI 0.427 m AoV Area VTI 1.42 cm2 AoV Area/ BSA (VTI) 0.67 cm/m2 Mitral Valve MV DT 269 (160-240 msec) MV PHT 78 msec MV Area PHT 2.82 cm2
== END 2023-04-06 12:43 ==
LOC: DI 12:24
PROVIDERS: Visit Provider Physician Assistant
DX: I63.9 Cerebral infarction, unspecified (principal)
CPT/HCPCS: 93306; 93308

== ENCOUNTER 2023-04-25 07:55 | Outpatient (REF) | payer SELFPAY ==
[2023-04-25 09:05] LABS: Anion Gap 8.5 mmol/L (3-11); BUN 15 mg/dL (7-18); CO2 27.5 mmol/L (21.0-32.0); CREATININE 0.6 mg/dL (0.55-1.02); Calcium 8.8 mg/dL (8.5-10.1); Chloride 108 mmol/L (98-107); Glucose 121 mg/dL (74-106); Magnesium 1.7 mg/dL (1.8-2.4); Potassium 4.8 mmol/L (3.5-5.1); Sodium 144 mmol/L (136-145)
== END 2023-04-25 07:56 | disposition home or self-care (01) ==
LOC: LBN 07:55
PROVIDERS: Visit Provider Physician Assistant
DX: M62.81 Muscle weakness (generalized) (principal); I10 Essential (primary) hypertension; G45.8 Other transient cerebral ischemic attacks and related syndromes
CPT/HCPCS: 80048; 83735

== ENCOUNTER → 2023-05-10 09:26 | Outpatient (BNVA) | payer MEDICARE, MEDICAID, SELFPAY | PROVIDERS: Visit Provider Psychiatry & Neurology Neurology | DX: Z86.73 Personal history of transient ischemic attack (TIA), and cerebral infarction without residual deficits (principal); Z79.82 Long term (current) use of aspirin; E53.8 Deficiency of other specified B group vitamins; G82.22 Paraplegia, incomplete; G95.89 Other specified diseases of spinal cord | CPT/HCPCS: 99214 ==

== ENCOUNTER 2023-05-18 06:36 | Outpatient (REF) | payer SELFPAY | END 2023-05-18 06:37 | disposition home or self-care (01) | LOC: LBN 06:36 | PROVIDERS: Visit Provider Physician Assistant | DX: R53.83 Other fatigue (principal); R11.2 Nausea with vomiting, unspecified; J02.9 Acute pharyngitis, unspecified | CPT/HCPCS: 87081 ==

== ENCOUNTER 2023-05-19 16:39 | Outpatient (REF) | payer SELFPAY ==
[2023-05-19 14:03] LABS: COVID-19 PCR Negative (Negative); Influenza A PCR Negative (Negative); Influenza B PCR Negative (Negative); RSV PCR Negative (Negative)
[2023-05-19 14:12] LABS: Source Nasopharynx
== END 2023-05-19 16:40 | disposition home or self-care (01) ==
LOC: LBN 16:39
PROVIDERS: Visit Provider Physician Assistant
DX: R53.1 Weakness (principal); Z20.822 Contact with and (suspected) exposure to COVID-19
CPT/HCPCS: 87637

== ENCOUNTER 2023-06-23 08:17 | Outpatient (CLI) | payer MEDICARE, MEDICAID, SELFPAY ==
--- NOTE | 2023-06-23 08:15 | RT.EKG_ITS ---
APPROVED REPORT Exam: Resting ECG Reason for Exam: non sustained VT on holter monitor Patient Location: O HR:75 bpm ECG Measurements Heart Rate 75 AXIS ND [id number] P [id number] QRSd 93 QRS -14 QT 368 T 3 QTc 411 Conclusion Sinus rhythm Baseline artifact Possible old inferior infarct Low voltage
== END 2023-06-23 08:18 | disposition home or self-care (01) ==
LOC: DI.CARD 08:27
PROVIDERS: Visit Provider Internal Medicine Cardiovascular Disease
DX: I47.29 Other ventricular tachycardia (principal)
CPT/HCPCS: 93010

== ENCOUNTER → 2023-06-23 11:27 | Outpatient (BNVA) | payer MEDICARE, MEDICAID, SELFPAY | PROVIDERS: Visit Provider Internal Medicine Cardiovascular Disease | DX: Z86.73 Personal history of transient ischemic attack (TIA), and cerebral infarction without residual deficits (principal); G82.22 Paraplegia, incomplete; Z99.3 Dependence on wheelchair; I10 Essential (primary) hypertension; I47.29 Other ventricular tachycardia | CPT/HCPCS: 93005; 99203; 99213 ==

== ENCOUNTER 2023-07-21 07:18 | Outpatient (REF) | payer MEDICARE, MEDICAID, SELFPAY ==
[2023-07-21 12:10] LABS: Bilirubin Negative (Negative); Blood Trace-intact (Negative); Clarity Sl Cloudy (Clear); Glucose Negative (Negative); Ketones Negative (Negative); Leukocyte Esterase Large (Negative); Nitrite Positive (Negative); Specific Gravity 1.025 (1.005-1.025); Urobilinogen 0.2 mg/dL (Up to 0.2)
[2023-07-21 12:30] LABS: Bacteria Many HPF (Negative); C & S Indicated? Yes; Casts Negative LPF (Negative); Crystals Negative HPF (Negative); Epithelial Cells Few HPF (Negative); Mucus Negative (Negative); RBC 0-2 HPF (0-2); WBC >50 HPF (0-5)
== END 2023-07-21 07:19 | disposition home or self-care (01) ==
LOC: LBN 07:18
PROVIDERS: Visit Provider Family Medicine
DX: R30.0 Dysuria (principal); R82.998 Other abnormal findings in urine; R82.79 Other abnormal findings on microbiological examination of urine
CPT/HCPCS: 87077; 81003; 81015; 87086; 87186

== ENCOUNTER 2023-08-09 19:54 | Outpatient (REF) | payer MEDICARE, MEDICAID, SELFPAY ==
[2023-08-09 13:43] LABS: Bilirubin Negative (Negative); Blood Negative (Negative); Clarity Cloudy (Clear); Glucose Negative (Negative); Ketones Negative (Negative); Leukocyte Esterase Moderate (Negative); Nitrite Positive (Negative); Urobilinogen 0.2 mg/dL (Up to 0.2)
[2023-08-09 14:03] LABS: Bacteria Many HPF (Negative); C & S Indicated? Yes; Casts Negative LPF (Negative); Crystals Negative HPF (Negative); Epithelial Cells Few HPF (Negative); Mucus Negative (Negative); RBC 0-2 HPF (0-2); WBC 20-50 HPF (0-5)
== END 2023-08-09 19:55 | disposition home or self-care (01) ==
LOC: LBN 19:54
PROVIDERS: Visit Provider Family Medicine
DX: R30.0 Dysuria (principal); R82.998 Other abnormal findings in urine
CPT/HCPCS: 87077; 81003; 81015; 87086; 87186

== ENCOUNTER 2023-12-20 14:52 | Outpatient (REF) | payer MEDICARE, MEDICAID, SELFPAY ==
[2023-12-20 14:30] LABS: Anion Gap 8.6 mmol/L (3-11); BUN 13 mg/dL (7-18); CO2 24.4 mmol/L (21.0-32.0); CREATININE 0.6 mg/dL (0.55-1.02); Calcium 9.7 mg/dL (8.5-10.1); Chloride 107 mmol/L (98-107); Glucose 98 mg/dL (74-106); Potassium 4.4 mmol/L (3.5-5.1); Sodium 140 mmol/L (136-145); Vitamin B12 828 pg/mL (193-986)
== END 2023-12-20 14:53 | disposition home or self-care (01) ==
LOC: LBN 14:52
PROVIDERS: PCP Nurse Practitioner Adult Health; Visit Provider Nurse Practitioner Adult Health
DX: I10 Essential (primary) hypertension (principal); R53.1 Weakness; E53.8 Deficiency of other specified B group vitamins
CPT/HCPCS: 80048; 82607

== ENCOUNTER → 2024-01-20 00:21 | Outpatient (CLI) | payer MEDICARE, MEDICAID, SELFPAY ==
--- NOTE | 2024-01-20 09:42 | DI.RAD_ITS ---
Exam(s) XR FOOT RT COMPLETE EXAM: XR FOOT RT COMPLETE CLINICAL HISTORY: ? FX OF METATARSAL 3-4,H/O FALL. TECHNIQUE: 2D digital imaging was performed of the right foot. Four images were obtained. AP, obli que and lateral views were obtained. COMPARISON: No exams were available for comparison FINDINGS: BONES: No acute fracture is present. No bony destructive lesion is seen. There is a small plantar sofi caneal spur. The bones are osteopenic. JOINTS: No dislocation present. There are degenerative changes seen in the foot. Hammertoes are pres ent. SOFT TISSUE: There is soft tissue swelling of the foot. IMPRESSION: No acute fracture or dislocation. DATA REPOSITORY: RADIATION DOSE DELIVERED:
== END ==
PROVIDERS: PCP Nurse Practitioner Adult Health; Visit Provider Nurse Practitioner Family
DX: M79.671 Pain in right foot (principal); M77.31 Calcaneal spur, right foot; M85.88 Other specified disorders of bone density and structure, other site; M20.41 Other hammer toe(s) (acquired), right foot
CPT/HCPCS: 73630

== ENCOUNTER 2024-08-28 13:57 | Outpatient (REF) | payer MEDICARE, MEDICAID, SELFPAY ==
[2024-08-28 17:40] LABS: Anion Gap 6.8 mmol/L (3-11); BUN 11 mg/dL (7-18); CO2 27.2 mmol/L (21.0-32.0); CREATININE 0.7 mg/dL (0.55-1.02); Calcium 9.9 mg/dL (8.5-10.1); Chloride 103 mmol/L (98-107); Estimated GFR 92.41 (mL/min/1.73m2); Glucose 126 mg/dL (74-106); Potassium 4.2 mmol/L (3.5-5.1); Sodium 137 mmol/L (136-145)
== END 2024-08-28 13:58 | disposition home or self-care (01) ==
LOC: LBO 13:57
PROVIDERS: PCP Nurse Practitioner Adult Health; Visit Provider Family Medicine
DX: R68.89 Other general symptoms and signs (principal)
CPT/HCPCS: 80048

== ENCOUNTER 2024-09-20 14:21 | Outpatient (REF) | payer MEDICARE, MEDICAID, SELFPAY ==
[2024-09-20 16:34] LABS: ALT 18 U/L (14-59); AST 9 U/L (15-37); Albumin 3.4 g/dL (3.4-5.0); Alkaline Phosphatase 110 U/L (46-116); Anion Gap 9.2 mmol/L (3-11); BUN 16 mg/dL (7-18); Bilirubin, Total 0.36 mg/dL (0.2-1.0); CO2 24.8 mmol/L (21.0-32.0); CREATININE 0.8 mg/dL (0.55-1.02); Calcium 10.1 mg/dL (8.5-10.1); Chloride 109 mmol/L (98-107); Estimated GFR 78.72 (mL/min/1.73m2); Glucose 170 mg/dL (74-106); Potassium 4.3 mmol/L (3.5-5.1); Sodium 143 mmol/L (136-145); Total Protein 7.3 g/dL (6.4-8.2); Vitamin B12 1191 pg/mL (193-986)
== END 2024-09-20 14:22 | disposition home or self-care (01) ==
LOC: LBN 14:21
PROVIDERS: PCP Nurse Practitioner Adult Health; Visit Provider Family Medicine
DX: M62.81 Muscle weakness (generalized) (principal); I10 Essential (primary) hypertension; E53.8 Deficiency of other specified B group vitamins
CPT/HCPCS: 80053; 82607

== ENCOUNTER 2024-12-06 15:49 | Outpatient (REF) | payer MEDICARE, MEDICAID, SELFPAY ==
[2024-12-06 17:01] LABS: ALT 12 U/L (14-59); AST 11 U/L (15-37); Albumin 3.3 g/dL (3.4-5.0); Alkaline Phosphatase 158 U/L (46-116); Anion Gap 8.9 mmol/L (3-11); BUN 14 mg/dL (7-18); Bilirubin, Total 0.27 mg/dL (0.2-1.0); CO2 25.1 mmol/L (21.0-32.0); CREATININE 0.7 mg/dL (0.55-1.02); Calcium 9.7 mg/dL (8.5-10.1); Chloride 109 mmol/L (98-107); Estimated GFR 92.41 (mL/min/1.73m2); Glucose 102 mg/dL (74-106); Potassium 4.5 mmol/L (3.5-5.1); Sodium 143 mmol/L (136-145); Total Protein 6.9 g/dL (6.4-8.2); Vitamin B12 607 pg/mL (193-986)
== END 2024-12-06 15:50 | disposition home or self-care (01) ==
LOC: LBN 15:49
PROVIDERS: PCP Nurse Practitioner Adult Health; Visit Provider Family Medicine Geriatric Medicine
DX: R53.1 Weakness (principal)
CPT/HCPCS: 80053; 82607

== ENCOUNTER 2025-02-06 03:34 | Outpatient (CLI) | payer MEDICARE, MEDICAID, SELFPAY ==
--- NOTE | 2025-02-06 | DI.MRI_ITS ---
Exam(s) MR THORACIC SPINE WO/W EXAM: MR THORACIC SPINE WO/W CLINICAL HISTORY: Spinal cord tumor, D49.7, surveillance, meningioma s/p resection TECHNIQUE: Multiplanar multisequence MRI of the thoracic spine was performed without intravenous con trast. COMPARISON: MR MR THORACIC SPINE WO from 11/26/2022 FINDINGS: There has been interval resection of a spinal canal lesion at C7-T1 level since the prior MRI scan of 11/26/2022. That area will be discussed on the separate cervical spine MRI performed today. See that separate report OSSEOUS: There are no acute appearing thoracic vertebral fractures. There is a mild lower thoracic ky phosis again evident, this related to partial fusion anteriorly at the T8, T9, and T10 vertebral bodi es. There are benign intraosseous hemangioma is again noted in the anterosuperior aspect of T3 and w ithin the T10 vertebral body and upper T12 vertebral body, unchanged. At T 6-7 level there are Modic type 2 sub endplate fatty marrow changes anteriorly. There is no significant disc herniation at thi s level nor elsewhere in the thoracic spinal column. Mild symmetrical annular bulging is noted at L1 -2 level but without significant disc herniation nor canal stenosis at this level. On the left side of the T9-10 level there is some posterior bony ridging again noted which flattens the anterior theca l sac at this level and contacts the spinal cord at this level, similar to the previous study. There is no abnormal signal within the cord at this level and no cord atrophy nor swelling at this level. THORACIC SPINAL CORD: Below the level of prior surgery at the junction of the cervical and upper thor acic spine there is no abnormal signal in the cervical spinal cord and no evidence of focal cord atro phy nor focal cord swelling. There is no evidence of syringomyelia nor significant spinal cord dysra phism. There is no evidence of mass at the conus medullaris. The position of the conus medullaris is at L1 level. CONTRAST INJECTION: No new areas of abnormal enhancement within the spinal column and paraspinal tiss ues below the level the prior surgery at the junction of the cervical and upper thoracic levels. PARASPINAL TISSUES: No significant masses nor fluid collections evident. IMPRESSION: 1. See separate cervical MRI dictation from today for postoperative appearance at C7-T1 level. 2. This dictation pertains to the thoracic spinal column below the level of prior surgery which was a t C7-T1 level. At and below the T2 level there are no new significant findings in the spinal cord, s denis canal, nor within the thoracic vertebrae. DATA REPOSITORY:
--- NOTE | 2025-02-06 | DI.MRI_ITS ---
Exam(s) MR CERVICAL SPINE WO/W EXAM: MR CERVICAL SPINE WO/W CLINICAL HISTORY: Spinal cord tumor, D49.7, surveillance, meningioma s/p resection TECHNIQUE: Multiplanar multisequence MRI of the cervical spine was performed. CONTRAST MATERIAL: IV Contrast: 20 ML of Dotarem contrast administered. COMPARISON: MR MR CERVICAL SPINE WO/W from 11/26/2022 FINDINGS: BONES: Vertebral body heights are maintained. There are endplate osteophytes at C3-4 through C5-C6. A lignment is normal. Bone marrow signal intensity is unchanged. Mild degenerative endplate signal hutchinson ges are seen. There is a stable heterogeneous lesion and T3. CERVICAL CORD: Craniovertebral junction is unremarkable. The cervical cord is normal size and signal intensity. No lesion is present. SOFT TISSUES: Unremarkable. ENHANCEMENT: No enhancing soft tissue is seen in the surgical bed. There is no evidence of a recurren t lesion in the spinal canal at the C7-T1 level. C2-3: No disc herniation or bulge is identified. No significant central spinal canal or neural forami nal stenosis. C3-4: There is mild prominence of the osteophyte disc complex. There is no significant central spinal canal stenosis. Degenerative changes are seen at the facets on the left causing mild left neural for aminal stenosis. There is no significant right neural foraminal stenosis. No significant central spin al canal or neural foraminal stenosis C4-5: There is prominence of the osteophyte disc complex at this level. It causes narrowing of the ce ntral spinal canal to 5.4 mm. There is flattening of the anterior spinal cord. There is normal signal in the spinal cord. Degenerative changes are seen at the uncovertebral joints causing mild bilateral neural foraminal stenosis. C5-6: There is prominence of the osteophyte disc complex causing narrowing of the central spinal ezio l. The AP diameter is 7 mm. There is mild bilateral neural foraminal stenosis. C6-7: No disc herniation or bulge is identified. No significant central spinal canal or neural forami nal stenosis C7-T1: No disc herniation or bulge is identified. No significant central spinal canal or neural sally inal stenosis IMPRESSION: 1. Status post meningioma resection at C7-T1. No definite residual tumor is seen at this time. 2. Multilevel degenerative changes in the cervical spine resulting in central spinal canal or neural foraminal stenosis. The findings are most marked at the C4-5 and C5-C6 levels. DATA REPOSITORY:
[2025-02-06] MEDS: Normal Saline Flush 10 ML SYR IVP (13:13)
[2025-02-06] MEDS: Gadoterate meglumine 20 ML SYRINGE IVP (13:13)
== END 2025-02-06 03:54 ==
LOC: DI 03:34
PROVIDERS: PCP Nurse Practitioner Adult Health; Visit Provider Physician Assistant
DX: D49.7 Neoplasm of unspecified behavior of endocrine glands and other parts of nervous system (principal)
CPT/HCPCS: 72156; 72157

== ENCOUNTER 2025-05-17 14:47 | Outpatient (REF) | payer MEDICARE, MEDICAID, SELFPAY ==
[2025-05-17 13:50] LABS: Abs Immature Grans 0.02 10^3/uL (0.0-0.06); Absolute Basophil Count 0.03 10^3/uL (0.0-0.2); Absolute Eosinophil Count 0.17 10^3/uL (0.0-0.7); Absolute Lymphocyte Count 2.23 10^3/uL (1.2-3.4); Absolute Monocyte Count 0.45 10^3/uL (0.1-0.8); Absolute Neutrophil Count 4.22 10^3/uL (1.2-6.7); Basophils % 0.4 %; Eosinophils % 2.4 %; HCT 37.1 % (36.0-46.0); HGB 11.5 g/dL (11.2-15.7); Immature Grans % 0.3 %; Lymphocytes % 31.3 %; MCH 25.5 pg (27.0-33.0); MCV 82 fL (80-95); MPV 10.5 fL (8.0-11.0); Monocytes % 6.3 %; Neutrophils % 59.3 %; Platelet Count 256 10^3/uL (130-400); RBC 4.51 10^6/uL (3.93-5.22); RDW 15.9 % (11.7-14.6); RDW-SD 47.4 fL; WBC 7.12 10^3/uL (4.4-10.8)
[2025-05-17 14:16] LABS: ALT 28 U/L (14-59); AST 11 U/L (15-37); Albumin 3.5 g/dL (3.4-5.0); Alkaline Phosphatase 120 U/L (46-116); Anion Gap 8.1 mmol/L (3-11); BUN 17 mg/dL (7-18); Bilirubin, Total 0.4 mg/dL (0.2-1.0); CO2 26.9 mmol/L (21.0-32.0); CREATININE 0.8 mg/dL (0.55-1.02); Calcium 9.5 mg/dL (8.5-10.1); Calculated LDL 43 mg/dL (<100); Chloride 107 mmol/L (98-107); Cholesterol 102 mg/dL (<200); Estimated GFR 78.24 (mL/min/1.73m2); Glucose 127 mg/dL (74-106); HDL Cholesterol 40 mg/dL (>or=50); Potassium 4.1 mmol/L (3.5-5.1); Sodium 142 mmol/L (136-145); TSH 2.57 uIU/mL (0.36-3.74); Triglyceride 98 mg/dL (<150)
== END 2025-05-17 14:48 | disposition home or self-care (01) ==
LOC: LBN 14:47
PROVIDERS: PCP Nurse Practitioner Adult Health; Visit Provider Family Medicine
DX: I10 Essential (primary) hypertension (principal)
CPT/HCPCS: 80053; 80061; 84443; 85025